=== PATIENT | female | born 1995 | race African-American/Black ===

== ENCOUNTER 2016-10-23 12:31 | Emergency (ER) | payer SELFPAY ==
[2016-10-23] MEDS ORDERED: IBUPROFEN 600 MG TABLET PO ONE (12:48)
--- NOTE | 2016-10-23 12:49 | ER Document Report ---
ED Medical Screen (RME) - General Stated Complaint: CHEST TIGHTNESS Mode of Arrival: Ambulatory Information source: Patient Notes: Patient complains of midsternal chest pain that has been constant. Patient reports nausea. Patient denies any cough or cold symptoms. Patient states that pain is tight close to the center of her back. Patient denies any family history of early heart disease. Patient denies any history of reflux. hx: None I have greeted and performed a rapid initial assessment of this patient. A comprehensive ED assessment and evaluation of the patient, analysis of test results and completion of the medical decision making process will be conducted by additional ED providers. TRAVEL OUTSIDE OF THE [place] IN LAST 30 DAYS: No - Related Data Allergies/Adverse Reactions: No Known Allergies Allergy (Verified 02/10/14 13:50) Past Medical History - Immunizations Hx Diphtheria, Pertussis, Tetanus Vaccination: Yes Physical Exam - Respiratory Chest status: Nontender - Cardiovascular Rhythm: Regular Heart sounds: S1 appreciated, S2 appreciated
[2016-10-23 12:51] VITALS: BP 117/68
--- NOTE | 2016-10-23 13:29 | EKG REPORT ---
SEVERITY:- NORMAL ECG - SINUS RHYTHM : Confirmed by: Fredi Joseph MD 23-Oct-2016 13:27:38
== END 2016-10-23 14:00 | disposition left against medical advice (07) ==
LOC: ER 12:31
DX: R07.9 Chest pain, unspecified (principal); R11.0 Nausea
CPT/HCPCS: 93005; 93010; 99281

== ENCOUNTER 2016-10-28 00:08 | Emergency (ER) | payer SELFPAY ==
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
[2016-10-28 01:27] LABS: ABSOLUTE BASOPHILS # (AUTO) 0.1 10^3/uL (0.0-0.2); ABSOLUTE LYMPHOCYTES (AUTO) 1.9 10^3/uL (0.5-4.7); ABSOLUTE MONOCYTES (AUTO) 0.6 10^3/uL (0.1-1.4); ABSOLUTE NEUT (AUTO) 5.2 10^3/uL (1.7-8.2); BASOPHILS % (AUTO) 0.8 % (0-2); EOSINOPHILS % (AUTO) 0.3 % (0-6); HEMATOCRIT 38.1 % (36.0-47.0); HEMOGLOBIN 12.9 g/dL (12.0-15.5); HGB HCT DIFFERENCE 0.6; LYMPHOCYTES % (AUTO) 24.3 % (13-45); MEAN CORPUSCULAR HEMOGLOBIN 28.6 pg (27.0-33.4); MEAN CORPUSCULAR HGB CONC 33.9 g/dL (32.0-36.0); MEAN CORPUSCULAR VOLUME 84 fl (80-97); MONOCYTES % (AUTO) 7.4 % (3-13); RED BLOOD COUNT 4.51 10^6/uL (3.72-5.28); RED CELL DISTRIBUTION WIDTH 13.3 % (11.5-14.0); SEGMENTED NEUTROPHILS % (AUTO) 67.2 % (42-78); WHITE BLOOD COUNT 7.7 10^3/uL (4.0-10.5)
[2016-10-28 01:46] LABS: APPEARANCE,URINE SLIGHTLY-CLOUDY; BILIRUBIN,URINE NEGATIVE (NEGATIVE); GLUCOSE, URINE NEGATIVE (NEGATIVE); KETONES,URINE TRACE mg/dL (NEGATIVE); LEUKOCYTE ESTERASE,URINE SMALL (NEGATIVE); NITRITE,URINE NEGATIVE (NEGATIVE); PROTEIN,URINE NEGATIVE (NEGATIVE); URINE SPECIFIC GRAVITY 1.024; UROBILINOGEN,URINE NEGATIVE mg/dL (<2.0)
[2016-10-28 01:50] LABS: ALANINE AMINOTRANSFERASE 26 U/L (9-52); ALBUMIN 4.7 g/dL (3.5-5.0); ALKALINE PHOSPHATASE 51 U/L (38-126); ANION GAP 14 (5-19); ASPARTATE AMINO TRANSFERASE 14 U/L (14-36); BILIRUBIN,TOTAL 0.7 mg/dL (0.2-1.3); BLOOD UREA NITROGEN 9 mg/dL (7-20); CALCIUM 9.5 mg/dL (8.4-10.2); CARBON DIOXIDE 24 mmol/L (22-30); CHLORIDE 105 mmol/L (98-107); GLUCOSE 127 mg/dL (75-110); POTASSIUM 3.3 mmol/L (3.6-5.0); SODIUM 142.7 mmol/L (137-145); TOTAL PROTEIN 7.5 g/dL (6.3-8.2)
[2016-10-28 01:55] LABS: ALCOHOL < 10 mg/dL (NONE DETECTED)
[2016-10-28 02:01] LABS: URINE BARBITURATES SCREEN NEGATIVE; URINE METHADONE SCREEN NEGATIVE; URINE OPIATES LOW UNCONFIRMED POSITIVE; URINE PHENCYCLIDINE SCREEN NEGATIVE
[2016-10-28] MEDS ORDERED: ONDANSETRON 4 MG TAB.RAPDIS ONE (08:00)
[2016-10-28] MEDS ORDERED: ONDANSETRON 4 MG TAB.RAPDIS PO ONE (08:17)
--- NOTE | 2016-10-28 09:37 | ER Document Report ---
Doctor's Note Notes: 21-year-old female presents after a supposed overdose. Medically cleared and awaiting psychiatric evaluation and recommendations at this time. No complaints at this time. PE: AAOx4. RRR. CTAB. Calm demeanor.
--- NOTE | 2016-10-28 11:14 | EKG REPORT ---
SEVERITY:- ABNORMAL ECG - SINUS RHYTHM RIGHT ATRIAL ABNORMALITY BORDERLINE T ABNORMALITIES, INFERIOR LEADS : Confirmed by: Fredi Joseph MD 28-Oct-2016 11:13:48
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
[2016-10-28] MEDS ORDERED: ACETAMINOPHEN 325 MG TABLET PO ONE (20:57)
[2016-10-28] MEDS ORDERED: BUSPIRONE HCL 10 MG TABLET PO SCH (22:00)
[2016-10-29] MEDS ORDERED: CITALOPRAM HYDROBROMIDE 20 MG TABLET PO SCH (10:00)
--- NOTE | 2016-10-29 16:27 | PSYCHOLOGICAL NOTE ---
Psych Note - Psych Note Psych Note: Conducted check in with patient who is a 21 year old female under IVC at [facility] ED for SI with alleged overdose. Patient today presents smiling with brighter affect. Patient denies suicidal ideations. Patient states she has not had any negative thoughts and reports she deeply misses her children. Patient answers that her thought processes has changed, and that she feels hope. Note, reviewed symptoms of mercy with patient to include elevated mood, impulsive urges, unusually happy, etc. each of which she denied. Patient's boyfriend is bedside and further denies she is presenting with these symptoms. He reports she is "more like herself." He denied concerns for her safety. Reviewed with patient options in regards to following up outpatient, which she agreed to do. Reviewed precautionary measures to include boyfriend securing all medications in the home and placing in a lock box for him to provide doses when due, as well as him keeping the gun safe sheets on his person at all times. Boyfriend and patient report they are in agreement with plan of care. Patient is A&Ox4. Mood is euthymic with smiling affect. Patient denies suicidal /homicidal ideaitons, intent, or plan. Patient denies A/V H; delusions not noted. Thought processes were organized. Conversational speech was WNL for patient. Intellectual abilities were estimated within average range. Attention and focus were fair. Insight, judgment, and impulse control were fair. Unspecified Depressive Disorder R/O PTSD Patient is psychiatrically cleared for discharge and recommended for rescind IVC. Discussed at length with patient and boyfriend the quick escalation in her mood and affect. Encouraged patient to monitor her mood with the medications started last night and to quickly follow up with outpatient services , not to be discouraged if she does not continue to rise in mood/affect, and to return if any symptoms return or worsen. Discussed with patient coping skills to assist her, to include journaling, talking with friends/boyfriend, distracting herself, deep breathing when feeling anxious, and basic thought stopping. Patient was scheduled a follow up appointment with [facility] in [place] Saturday the . Patient and boyfriend provided with community resources. I consulted with Dr. Kapadia in regards for the care and management of this patient.
--- NOTE | 2016-10-29 16:28 | ER Document Report ---
ED Psych Disorder / Suicide - General Chief Complaint: Possible Overdose Stated Complaint: POSSIBLE OVERDOSE Mode of Arrival: Ambulatory TRAVEL OUTSIDE OF THE [place] IN LAST 30 DAYS: No - Related Data Allergies/Adverse Reactions: No Known Allergies Allergy (Verified 02/10/14 13:50) Past Medical History - General Information source: Patient - Social History Smoking Status: Never Smoker Chew tobacco use (# tins/day): No Frequency of alcohol use: Occasional Drug Abuse: None Family History: Reviewed & Not Pertinent, Malignancy Patient has suicidal ideation: No Patient has homicidal ideation: No Renal/ Medical History: Denies: Hx Peritoneal Dialysis Surgical Hx: Negative - Immunizations Hx Diphtheria, Pertussis, Tetanus Vaccination: Yes Physical Exam - Vital signs Vitals: Temp Pulse Resp BP Pulse Ox 98.1 F 115 H 16 129/78 H 99 10/28/16 00:15 10/28/16 00:15 10/28/16 00:15 10/28/16 00:15 10/28/16 00:15 Course - Re-evaluation Re-evalutation: 10/29/16 16:29 Patient medically cleared from her overdose and evaluated by psych. Their recommendations are "Patient is psychiatrically cleared for discharge and recommended for rescind IVC. Discussed at length with patient and boyfriend the quick escalation in her mood and affect. Encouraged patient to monitor her mood with the medications started last night and to quickly follow up with outpatient services, not to be discouraged if she does not continue to rise in mood/affect, and to return if any symptoms return or worsen. Discussed with patient coping skills to assist her, to include journaling, talking with friends /boyfriend, distracting herself, deep breathing when feeling anxious, and basic thought stopping. Patient was scheduled a follow up appointment with [facility] in [place] Saturday the . Patient and boyfriend provided with community resources. I consulted with Dr. Kapadia in regards for the care and management of this patient." Will DC patient home with 2 weeks of citalopram and BuSpar with follow-up at outpatient psychiatry. - Vital Signs Vital signs: Temp Pulse Resp BP Pulse Ox 97.9 F 62 16 100/55 L 98 10/29/16 06:50 10/29/16 06:50 10/29/16 06:50 10/29/16 06:50 02/13/17 06:50 - Laboratory Result Diagrams: 02/12/17 01:00 10/28/16 01:00 Laboratory results interpreted by me: 10/28/16 10/28/16 01:00 01:20 Potassium 3.3 L Glucose 127 H Urine Ketones TRACE H Urine Blood SMALL H Ur Leukocyte Esterase SMALL H Urine Ascorbic Acid 40 H Salicylates < 1.0 L Discharge - Discharge Clinical Impression: Suicide attempt Overdose Qualifiers: Encounter type: initial encounter Injury intent: intentional self-harm Qualified Code(s): T50.902A - Poisoning by unspecified drugs, medicaments and biological substances, intentional self-harm, initial encounter Condition: Stable Disposition: HOME, SELF-CARE Additional Instructions: You must go to [facility] as scheduled on Saturday. Your boyfriend will be handling your medications. DEPRESSION: Your evaluation reveals that you have mental depression. While symptoms may be vague, they often include disturbance of sleep, fatigue, loss of appetite , and general loss of interest in life. While depression may be a side effect of drugs, or a reaction to a major change in your life, many cases have no known cause. If depression is acute, and related to a major loss in your life, you can expect it to clear completely with time. If you have been depressed a long time , are prone to repeated bouts of depression or low mood, or have been thinking of suicide, get help. Depression can be treated with anti-depressant medication and counselling. Long-term depression will often take a few weeks to clear, even with appropriate medication. Follow-up care is important. SUICIDAL IDEATION: Suicidal ideation is a common medical term for thoughts about suicide, which may be as detailed as a formulated plan, without the suicidal act itself. Although most people who undergo suicidal ideation do not commit suicide, some go on to make suicide attempts. The range of suicidal ideation varies greatly from fleeting to detailed planning, role playing, and unsuccessful attempts. While thoughts about suicide are common, most people do not carry out serious actions to commit suicide. Based upon your evaluation and discussion with you, we do not believe you are currently at risk to act upon your thoughts of suicide. You have agreed to return to the Emergency Department, at any time , if you feel inclined to act upon your suicidal thoughts. FOLLOW-UP CARE: If you have been referred to a physician for follow-up care, call the physician s office for an appointment as you were instructed or within the next two days. If you experience worsening or a significant change in your symptoms, notify the physician immediately or return to the Emergency Department at any time for re-evaluation. Prescriptions: Buspirone HCl [Buspar 10 mg Tablet] 10 mg PO QHS #14 tab Citalopram Hydrobromide [Citalopram HBr] 20 mg PO DAILY #14 tablet
[2016-10-29 16:57] VITALS: BP 114/59
== END 2016-10-29 16:58 | disposition home or self-care (01) ==
LOC: ER 00:08
DX: F32.9 Major depressive disorder, single episode, unspecified (principal); T40.2X2A Poisoning by other opioids, intentional self-harm, initial encounter
CPT/HCPCS: 93005; 99285; 36415; 80307 ×4; 84703; 85025; 80053; 81001; 93010; S0119

== ENCOUNTER 2016-11-08 13:52 | Emergency (ER) | payer OTHER ==
[2016-11-08 14:18] VITALS: BP 101/54
[2016-11-08] MEDS ORDERED: METOCLOPRAMIDE HCL 10 MG TABLET PO ONE (14:21)
[2016-11-08] MEDS ORDERED: DIPHENHYDRAMINE HCL 25 MG CAPSULE PO ONE (14:21)
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
== END 2016-11-08 15:45 | disposition left against medical advice (07) ==
LOC: ER 13:52
DX: R51 Headache (principal); V89.2XXA Person injured in unspecified motor-vehicle accident, traffic, initial encounter
CPT/HCPCS: 99281

== ENCOUNTER 2017-01-21 17:51 | Emergency (ER) | payer MEDICAID, OTHER ==
[2017-01-21] MEDS ORDERED: ONDANSETRON 4 MG TAB.RAPDIS PO ONE (18:16)
[2017-01-21] MEDS ORDERED: DICYCLOMINE HCL 20 MG TABLET PO ONE (18:16)
[2017-01-21 19:04] LABS: APPEARANCE,URINE SLIGHTLY-CLOUDY; BILIRUBIN,URINE NEGATIVE (NEGATIVE); GLUCOSE, URINE NEGATIVE (NEGATIVE); KETONES,URINE NEGATIVE (NEGATIVE); LEUKOCYTE ESTERASE,URINE TRACE (NEGATIVE); NITRITE,URINE NEGATIVE (NEGATIVE); PROTEIN,URINE NEGATIVE (NEGATIVE); URINE SPECIFIC GRAVITY 1.026; UROBILINOGEN,URINE NEGATIVE mg/dL (<2.0)
[2017-01-21 19:08] LABS: ABSOLUTE EOSINOPHILS # (AUTO) 0.1 10^3/uL (0.0-0.6); ABSOLUTE MONOCYTES (AUTO) 0.7 10^3/uL (0.1-1.4); ABSOLUTE NEUT (AUTO) 3.9 10^3/uL (1.7-8.2); BASOPHILS % (AUTO) 0.6 % (0-2); EOSINOPHILS % (AUTO) 1.2 % (0-6); HEMATOCRIT 37.8 % (36.0-47.0); HEMOGLOBIN 12.4 g/dL (12.0-15.5); HGB HCT DIFFERENCE -0.6; LYMPHOCYTES % (AUTO) 29.7 % (13-45); MEAN CORPUSCULAR HEMOGLOBIN 27.9 pg (27.0-33.4); MEAN CORPUSCULAR HGB CONC 32.8 g/dL (32.0-36.0); MEAN CORPUSCULAR VOLUME 85 fl (80-97); MONOCYTES % (AUTO) 9.9 % (3-13); RED BLOOD COUNT 4.44 10^6/uL (3.72-5.28); RED CELL DISTRIBUTION WIDTH 13.1 % (11.5-14.0); SEGMENTED NEUTROPHILS % (AUTO) 58.6 % (42-78); WHITE BLOOD COUNT 6.6 10^3/uL (4.0-10.5)
[2017-01-21 19:27] LABS: ALANINE AMINOTRANSFERASE 24 U/L (9-52); ALBUMIN 4.5 g/dL (3.5-5.0); ALKALINE PHOSPHATASE 46 U/L (38-126); ANION GAP 11 (5-19); ASPARTATE AMINO TRANSFERASE 15 U/L (14-36); BILIRUBIN,DIRECT 0.3 mg/dL (0.0-0.4); BILIRUBIN,TOTAL 0.8 mg/dL (0.2-1.3); BLOOD UREA NITROGEN 13 mg/dL (7-20); CALCIUM 9.7 mg/dL (8.4-10.2); CARBON DIOXIDE 26 mmol/L (22-30); CHLORIDE 104 mmol/L (98-107); CREATININE RESULT 0.69 mg/dL (0.52-1.25); GLUCOSE 82 mg/dL (75-110); LIPASE 38.5 U/L (23-300); POTASSIUM 4.3 mmol/L (3.6-5.0); SODIUM 140.9 mmol/L (137-145); TOTAL PROTEIN 7.6 g/dL (6.3-8.2)
[2017-01-21 19:57] VITALS: BP 104/58
--- NOTE | 2017-01-21 19:57 | ER Document Report ---
ED General - General Chief Complaint: Abdominal Pain Stated Complaint: BACK PAIN Time Seen by Provider: 01/21/17 18:16 TRAVEL OUTSIDE OF THE [place] IN LAST 30 DAYS: No - HPI Patient complains to provider of: abdominal pain Notes: Patient coming in left lower quadrant abdominal pain crampy also having crampy back pain. Patient denies any fevers chills nausea vomiting diarrhea denies any trauma denies any recent travel. Patient is unaware for status. Patient states last Jona cycle was approximately 2 weeks ago. - Related Data Allergies/Adverse Reactions: No Known Allergies Allergy (Verified 01/21/17 17:54) Past Medical History - Social History Smoking Status: Former Smoker Chew tobacco use (# tins/day): No Frequency of alcohol use: Rare Drug Abuse: None Family History: Reviewed & Not Pertinent, Malignancy Patient has suicidal ideation: No Patient has homicidal ideation: No Renal/ Medical History: Denies: Hx Peritoneal Dialysis Psychiatric Medical History: Reports: Hx Depression - & anxiety - Immunizations Hx Diphtheria, Pertussis, Tetanus Vaccination: Yes Review of Systems - Review of Systems Constitutional: No symptoms reported EENT: No symptoms reported Cardiovascular: No symptoms reported Respiratory: No symptoms reported Gastrointestinal: Abdominal pain Genitourinary: No symptoms reported Female Genitourinary: No symptoms reported Musculoskeletal: No symptoms reported Skin: No symptoms reported Hematologic/Lymphatic: No symptoms reported Neurological/Psychological: No symptoms reported Physical Exam - Vital signs Vitals: Temp Pulse Resp BP Pulse Ox 98.6 F 77 16 105/56 L 99 01/21/17 17:56 01/21/17 17:56 01/21/17 17:56 01/21/17 17:56 01/21/17 17:56 Interpretation: Normal - General General appearance: Appears well, Alert - HEENT Head: Normocephalic, Atraumatic Eyes: Normal Pupils: PERRL - Respiratory Respiratory status: No respiratory distress Chest status: Nontender Breath sounds: Normal Chest palpation: Normal - Cardiovascular Rhythm: Regular Heart sounds: Normal auscultation Murmur: No - Abdominal Inspection: Normal Distension: No distension Bowel sounds: Normal Tenderness: Nontender Organomegaly: No organomegaly - Back Back: Normal, Nontender - Extremities General upper extremity: Normal inspection, Nontender, Normal color, Normal ROM , Normal temperature General lower extremity: Normal inspection, Nontender, Normal color, Normal ROM , Normal temperature, Normal weight bearing. No: Kristine's sign - Neurological Neuro grossly intact: Yes Cognition: Normal Orientation: AAOx4 [place] Coma Scale Eye Opening: Spontaneous [place] Coma Scale Verbal: Oriented [place] Coma Scale Motor: Obeys Commands Birds[place] Coma Scale Total: 15 Speech: Normal Motor strength normal: LUE, RUE, LLE, RLE Sensory: Normal - Psychological Associated symptoms: Normal affect, Normal mood - Skin Skin Temperature: Warm Skin Moisture: Dry Skin Color: Normal Course - Re-evaluation Re-evalutation: 01/21/17 20:54 The patient presents with abdominal pain without signs of peritonitis or other life-threatening or serious etiology. The patient appears stable for discharge and has been instructed to return immediately if the symptoms worsen in any way , or in 8-12hr if not improved for re-evaluation. The patient has been instructed to return if the symptoms worsen or change in any way.. Patient better after Bentyl and Zofran - Vital Signs Vital signs: Temp Pulse Resp BP Pulse Ox 98.1 F 69 14 104/58 L 100 01/21/17 19:56 01/21/17 19:56 01/21/17 19:56 01/21/17 19:56 01/21/17 19:56 - Laboratory Result Diagrams: 01/21/17 18:35 01/21/17 18:35 Laboratory results interpreted by me: 01/21/17 18:40 Ur Leukocyte Esterase TRACE H Discharge - Discharge Clinical Impression: Abdominal pain Qualifiers: Abdominal location: unspecified location Qualified Code(s): R10.9 - Unspecified abdominal pain Condition: Good Disposition: HOME, SELF-CARE Instructions: Abdominal Pain ([facility]), Nausea or Vomiting, Nonspecific ([facility]) Additional Instructions: Follow-up with your primary care physician. Please take medication as prescribed. I do believe your symptoms could be related to a virus or possible ovarian cyst. There is not much to be due for ovarian cyst this is normal for your agrees to form cyst and rupture and cause crampy sharp shooting pain. Sometimes nausea can be experienced with this. Please continue to take Tylenol Motrin for pain control. Return to the ER symptoms worsen. Prescriptions: Ondansetron [Zofran Odt 4 mg Tablet] 4 mg PO Q4HP PRN #30 tab.rapdis PRN Reason: Dicyclomine HCl [Bentyl 20 mg Tablet] 20 mg PO QID #20 tablet Ibuprofen [Motrin 800 mg Tablet] 800 mg PO Q8H PRN #30 tab PRN Reason: Forms: Return to Work
[2017-01-21 20:28] LABS: CHLAM PCR NOT DETECTED (NOT DETECT)
== END 2017-01-21 19:57 | disposition home or self-care (01) ==
LOC: ER 17:51
DX: R10.32 Left lower quadrant pain (principal); M54.9 Dorsalgia, unspecified; Z87.891 Personal history of nicotine dependence
CPT/HCPCS: 99284; 36415; 84702; 83690; 85025; 80053; 81001; 87491; 87591; J3490; S0119

== ENCOUNTER 2017-02-24 09:43 | Emergency (ER) | payer MEDICAID ==
--- NOTE | 2017-02-24 10:04 | ER Document Report ---
ED Medical Screen (RME) - General Chief Complaint: Abdominal Pain Stated Complaint: ABDOMINAL PAIN Time Seen by Provider: 02/24/17 10:00 Notes: Patient thinks she has an abdominal hernia. She noted yesterday that there was a protrusion slightly above and to the left of the umbilicus. Now today, it is to the right of the umbilicus. She had a problem with a hernia in that region he was last time. Patient is now about 6 weeks again. No vomiting. No fevers. I palpated around the umbilicus and did, in fact, located a small hard round structure about 1 cm diameter which I pressed on firmly but gently and did feel some relief of the tenseness of the lesion and may have been able to reduce it, but the patient is not cooperative during this process. Home going to get an ultrasound to see if there is any small or bowel in the hernia TRAVEL OUTSIDE OF THE [place] IN LAST 30 DAYS: No - Related Data Allergies/Adverse Reactions: No Known Allergies Allergy (Verified 02/24/17 09:50) Past Medical History Renal/ Medical History: Denies: Hx Peritoneal Dialysis Psychiatric Medical History: Reports: Hx Depression - & anxiety - Immunizations Hx Diphtheria, Pertussis, Tetanus Vaccination: Yes Physical Exam - Vital signs Vitals: Temp Pulse Resp BP Pulse Ox 98.2 F 82 16 109/54 L 99 02/24/17 09:50 02/24/17 09:50 02/24/17 09:50 02/24/17 09:50 02/24/17 09:50 Course - Vital Signs Vital signs: Temp Pulse Resp BP Pulse Ox 98.2 F 82 16 109/54 L 99 02/24/17 09:50 02/24/17 09:50 02/24/17 09:50 02/24/17 09:50 02/24/17 09:50
--- NOTE | 2017-02-24 10:56 | RADIOLOGY REPORT (SQ) ---
EXAM DESCRIPTION: U/S ABDOMEN LIMITED W/O DOP COMPLETED DATE/TIME: 02/24/2017 10:45 am REASON FOR STUDY: Small periumbilical hernia, to the right of umbili COMPARISON: CT from 01/06/2016 TECHNIQUE: Dynamic and static grayscale images acquired of the localized site of clinical concern an d recorded on PACS. Additional selected color Doppler and spectral images recorded. SITE OF CONCERN: Abdominal wall LIMITATIONS: None. FINDINGS: SKIN AND SUBCUTANEOUS TISSUES: Small fat containing periumbilical hernia measuring 2.1 x 2 .4 cm. DEEP SOFT TISSUES/MUSCLES: No masses. No fluid collections. No edema. VASCULAR: No increased or decreased vascularity. No occlusions. OTHER: No other significant finding. IMPRESSION: 2.4 CM FAT CONTAINING PERIUMBILICAL HERNIA. NO ADDITIONAL ACUTE OR SIGNIFICANT FINDINGS . TECHNICAL DOCUMENTATION: JOB ID: [id number] [employer]- All Rights Reserved
--- NOTE | 2017-02-24 11:50 | ER Document Report ---
ED General - General Chief Complaint: Abdominal Pain Stated Complaint: ABDOMINAL PAIN Time Seen by Provider: 02/24/17 10:00 Mode of Arrival: Ambulatory Information source: Patient Notes: 21-year-old female with pain around the bellybutton. States that she was told she had a hernia in the past and they were going to fix it after her last 3 years ago. She states that it has been bothering her recently. Patient denies any fever, chills, nausea or vomiting TRAVEL OUTSIDE OF THE [place] IN LAST 30 DAYS: No - HPI Onset: Other - 3 years Onset/Duration: Gradual Quality of pain: No pain Severity: None Pain Level: Denies Associated symptoms: None Exacerbated by: Denies Relieved by: Denies Similar symptoms previously: Yes Recently seen / treated by doctor: Yes - Related Data Allergies/Adverse Reactions: No Known Allergies Allergy (Verified 02/24/17 09:50) Past Medical History - General Information source: Patient - Social History Smoking Status: Never Smoker Cigarette use (# per day): No Chew tobacco use (# tins/day): No Frequency of alcohol use: None Drug Abuse: None Lives with: Family Family History: Reviewed & Not Pertinent, Malignancy Patient has suicidal ideation: No Patient has homicidal ideation: No - Medical History Medical History: Negative Renal/ Medical History: Denies: Hx Peritoneal Dialysis Psychiatric Medical History: Reports: Hx Depression - & anxiety Surgical Hx: Negative - Immunizations Hx Diphtheria, Pertussis, Tetanus Vaccination: Yes Review of Systems - Review of Systems Constitutional: denies: Chills, Fever EENT: No symptoms reported Cardiovascular: No symptoms reported Respiratory: No symptoms reported Gastrointestinal: See HPI Genitourinary: No symptoms reported Female Genitourinary: No symptoms reported Musculoskeletal: No symptoms reported Skin: No symptoms reported Hematologic/Lymphatic: No symptoms reported Neurological/Psychological: No symptoms reported Physical Exam - Vital signs Vitals: Temp Pulse Resp BP Pulse Ox 98.2 F 82 16 109/54 L 99 02/24/17 09:50 02/24/17 09:50 02/24/17 09:50 02/24/17 09:50 02/24/17 09:50 Notes: Physical exam: GENERAL:-year-old female, alert and oriented 3, no acute distress HEAD: Atraumatic, normocephalic. EYES: Pupils equal round and reactive to light, extraocular movements intact, sclera anicteric, conjunctiva are normal. ENT: TMs normal, nares patent, oropharynx clear without exudates. Moist mucous membranes. NECK: Normal range of motion, supple without lymphadenopathy or JVD. LUNGS: Breath sounds clear to auscultation bilaterally and equal. No wheezes rales or rhonchi. HEART: Regular rate and rhythm without murmurs, rubs or gallops. ABDOMEN: Soft, normoactive bowel sounds. No tenderness to palpation. No guarding, no rebound. No masses appreciated. Does have a small periumbilical wall defect without any incarcerated bowel. EXTREMITIES: Normal range of motion, no pitting or edema. No clubbing or cyanosis. NEUROLOGICAL: Cranial nerves II through XII grossly intact. Normal speech, normal gait. PSYCH: Normal mood, normal affect. SKIN: Warm, Dry, normal turgor, no rashes or lesions noted. Bedside ultrasound: Intrauterine approximately 7 weeks gestation with a good heartbeat. The small subchorionic bleed Course - Vital Signs Vital signs: Temp Pulse Resp BP Pulse Ox 98.4 F 81 18 105/63 99 02/24/17 12:13 02/24/17 12:13 02/24/17 12:13 02/24/17 12:13 02/24/17 12:13 - Diagnostic Test Radiology reviewed: Image reviewed, Reports reviewed - ultraSound shows no encarceration Discharge - Discharge Clinical Impression: Umbilical hernia Qualifiers: Obstruction and gangrene presence: without obstruction or gangrene Qualified Code(s): K42.9 - Umbilical hernia without obstruction or gangrene Condition: Stable Disposition: HOME, SELF-CARE Instructions: Umbilical Hernia ([facility]) Additional Instructions: : The abdominal ultrasound showed a small umbilical hernia. There is no evidence of obstruction at this time Bedside ultrasound confirmed an intrauterine at 7 weeks gestation with good heartbeat See the instruction sheet on umbilical hernia Follow-up with your OB doctor: Bring a copy of today's ultrasound report with you when you go. Take stool softeners: Avoid constipation The emergency room for vomiting, abdominal pain, redness or bulge that does not go away concerns which are getting worse Avoid heavy lifting Forms: Return to Work
[2017-02-24 12:17] VITALS: BP 105/63
== END 2017-02-24 12:16 | disposition home or self-care (01) ==
LOC: ER 09:43
DX: K42.9 Umbilical hernia without obstruction or gangrene (principal); R10.9 Unspecified abdominal pain
CPT/HCPCS: 76705; 99284

== ENCOUNTER 2017-04-06 15:59 | Emergency (ER) | payer MEDICAID, OTHER ==
--- NOTE | 2017-04-06 16:22 | ER Document Report ---
ED Psych Disorder / Suicide <SHIRIN VERNON - Last Filed: 04/06/17 17:38> - General Mode of Arrival: Ambulatory Information source: Patient TRAVEL OUTSIDE OF THE [place] IN LAST 30 DAYS: No <MANAN PINA - Last Filed: 04/06/17 22:59> <MEGHANA WYMAN - Last Filed: 04/07/17 22:41> - General Stated Complaint: SUICIDAL IDEATION Notes: Patient is a 21 year old female presenting to the emergency department for suicidal ideation. Patient states she is feeling overwhelmed and having anxiety. Patient states she took herself off buspar and celexa. Patient is currently 12 weeks . Patient is . Patient states she stopped the medications because of her . Patient states she was texting the mobile crisis line trying to vent and they contacted the program management analyst's department. Patient starting cutting herself and was going to take a bath. Patient states she was going to take a bath. Patient states she was not going to drown herself. Patient cut herself with a broken mirror. Patient's last tetanus vaccination is more than 5 years ago. Patient has a boyfriend, her boyfriend's parents as a support system and her best friend just moved out of state. Patient has occasional cramping and has not been in to see OBGYN for her . Patient has no known allergies. (MANAN PINA) - HPI Notes: Patient states that she was overwhelmed and feeling her anxiety increased so text mobile crisis that her help. She continued to state that she ended letting mobile is no that she got a hold of her therapist. Patient states her therapist is with [facility] in her name in [place]. She states after she spoke to her she kind of felt the same but was working on staying home. She continued disclosed that she stopped her medication in December because she was and that she just stop did not taper off. She continued disclosed that after she stops she did tell her therapist. Patient states that she has depressive episodes and difficulty controlling her thoughts because they are "everywhere." Patient disclosed she has been inpatient one in September for an overdose. Patient disclosed that she did cut her leg however she has a history of cutting since she was 12 years old. She states she cut an attempt to change focus. She states that she then attempted to take a bath to try to relax; patient denies this was a suicide attempt. Patient states she has an appointment on April 23 for medication. Patient states she is a different person when she is on medication. patient is alert and orientated to person place time and circumstance. Mood is euthymic with flat affect. Patient denies suicidal and homicidal ideation. Patient states she is very anxious and is depressed denies suicide attempts. Patient uses cutting as maladaptive coping skills. Patient denies auditory and visual hallucination; patient is not demonstrating any behavior congruent with responding to internal stimuli. No delusions are noted. Thought process is currently organized and linear. Eye contact was well-maintained. Intellectual abilities appear to be average range. Attention and concentration were good. Insight, judgment, impulse control are fair. Major depressive disorder recurrent unspecified anxiety disorder Impression\\plan: Patient is considered psychiatrically clear for discharge. Patient does not meet IVC criteria per [place] GS 120 2C. Patient does have history of suicide attempt however after treatment she has been successful on medication and therapeutic intervention. Patient stopped her medication because she is . Patient showed strong insight and judgment when reaching out to mobile crisis and her therapist to get her through her crisis. Patient states she was attempting to cope and did fall back on using a maladaptive coping skill denies it was an attempt. Patient boyfriend, Pavel Carrizales, states he will be part of discharge plan to ensure patient does not have access to weapons or medications and follows up with her mental health appointment on April 23 for medication. Patient is recommended to keep this appointment with [facility] however it is also recommended patient follow-up with her PHYSICIAN INTERNIST to see if there is alternative method to assist with her hormones. Dr. Kapadia was consulted on the care and management of this patient; attending physician is in agreement with recommendations and disposition. (SHIRIN VERNON) - Related Data Allergies/Adverse Reactions: No Known Allergies Allergy (Verified 02/24/17 09:50) Past Medical History - General Information source: Patient - Social History Smoking Status: Never Smoker Cigarette use (# per day): No Chew tobacco use (# tins/day): No Smoking Education Provided: No Frequency of alcohol use: None Drug Abuse: None Family History: Malignancy Patient has suicidal ideation: Yes Patient has homicidal ideation: No Psychiatric Medical History: Reports: Hx Anxiety, Hx Depression Surgical Hx: Negative - Immunizations Hx Diphtheria, Pertussis, Tetanus Vaccination: Yes <MANAN PINA - Last Filed: 04/06/17 22:59> Review of Systems - Review of Systems Constitutional: No symptoms reported EENT: No symptoms reported Cardiovascular: No symptoms reported Respiratory: No symptoms reported Gastrointestinal: No symptoms reported Genitourinary: No symptoms reported Female Genitourinary: No symptoms reported Musculoskeletal: No symptoms reported Skin: No symptoms reported Hematologic/Lymphatic: No symptoms reported Neurological/Psychological: See HPI, Depression, Anxiety, Suicidal ideation -: Yes All other systems reviewed and negative <MANAN PINA - Last Filed: 04/06/17 22:59> Physical Exam <SHIRIN VERNON - Last Filed: 04/06/17 17:38> <MANAN PINA - Last Filed: 04/06/17 22:59> <MEGHANA WYMAN - Last Filed: 04/07/17 22:41> - Vital signs Vitals: Temp Pulse Resp BP Pulse Ox 99.0 F 106 H 16 116/65 99 04/06/17 16:03 04/06/17 16:03 04/06/17 16:03 04/06/17 16:03 04/06/17 16:03 - Notes Notes: GENERAL: Alert, interacts well. No acute distress. HEAD: Normocephalic, atraumatic. EYES: Appear normal. Pupils equal, round, and reactive to light. ENT: Moist mucus membranes, tongue midline. NECK: Full range of motion. Supple. Trachea midline. LUNGS: Clear to auscultation bilaterally, no wheezes, rales, or rhonchi. No respiratory distress. HEART: Regular rate and rhythm. No murmurs, gallops, or rubs. ABDOMEN: Soft, non-tender. Non-distended. Normal bowel sounds. EXTREMITIES: Moves all 4 extremities spontaneously. Normal strength. No edema. NEUROLOGICAL: Alert and oriented x3. Normal speech. No focal neurological deficits. GSC 15. PSYCH: Appears depressed. SKIN: Warm, dry, normal turgor. No rashes or lesions noted. (MANAN PINA) Course - Laboratory Result Diagrams: 04/06/17 16:19 04/06/17 16:19 <SHIRIN VERNON - Last Filed: 04/06/17 17:38> - Laboratory Result Diagrams: 04/06/17 16:19 04/06/17 16:19 <MANAN PINA - Last Filed: 04/06/17 22:59> - Laboratory Result Diagrams: 04/06/17 16:19 04/06/17 16:19 <MEGHANA WYMAN - Last Filed: 04/07/17 22:41> - Re-evaluation Re-evalutation: 04/06/17 18:08 Patient presents emerged from history of major depression feeling very sad she is approximately . She stopped taking her antidepressant medication early when she found out she was and has not started on anything else. She is not suicidal or homicidal she has not been diagnosed with anything other than anxiety and depression in the past. Well-appearing nontoxic no acute distress negative medical workup seen and evaluated by the psychiatric team who feels that she is safe to be discharged home as written discharge instructions which I have printed and given her follow-up information she is comfortable with this plan and is stable for follow-up. (MEGHANA WYMAN) - Vital Signs Vital signs: Temp Pulse Resp BP Pulse Ox 98.8 F 93 18 104/52 L 98 04/06/17 18:21 04/06/17 18:21 04/06/17 18:21 04/06/17 18:21 04/06/17 18:21 - Laboratory Laboratory results interpreted by me: 04/06/17 04/06/17 16:19 16:25 Ur Leukocyte Esterase SMALL H Salicylates < 1.0 L Acetaminophen < 10 L Discharge <SHIRIN VERNON - Last Filed: 04/06/17 17:38> <MANAN PINA - Last Filed: 04/06/17 22:59> <MEGHANA WYMAN - Last Filed: 04/07/17 22:41> - Discharge Clinical Impression: Anxiety Major depressive disorder Qualifiers: Major depression recurrence: recurrent Active/Remission status: currently active Major depression episode severity: unspecified Qualified Code(s): F33.9 - Major depressive disorder, recurrent, unspecified Condition: Stable Disposition: HOME, SELF-CARE Additional Instructions: DEPRESSION: Your evaluation reveals that you have mental depression. While symptoms may be vague, they often include disturbance of sleep, fatigue, loss of appetite , and general loss of interest in life. While depression may be a side effect of drugs, or a reaction to a major change in your life, many cases have no known cause. If depression is acute, and related to a major loss in your life, you can expect it to clear completely with time. If you have been depressed a long time , are prone to repeated bouts of depression or low mood, or have been thinking of suicide, get help. Depression can be treated with anti-depressant medication and counselling. Long-term depression will often take a few weeks to clear, even with appropriate medication. Follow-up care is important. SUICIDAL IDEATION: Suicidal ideation is a common medical term for thoughts about suicide, which may be as detailed as a formulated plan, without the suicidal act itself. Although most people who undergo suicidal ideation do not commit suicide, some go on to make suicide attempts. The range of suicidal ideation varies greatly from fleeting to detailed planning, role playing, and unsuccessful attempts. While thoughts about suicide are common, most people do not carry out serious actions to commit suicide. Based upon your evaluation and discussion with you, we do not believe you are currently at risk to act upon your thoughts of suicide. You have agreed to return to the Emergency Department, at any time , if you feel inclined to act upon your suicidal thoughts. FOLLOW-UP CARE: Please follow-up with your outpatient mental health provider, maria, on 04/08/2017. Please follow-up with your PHYSICIAN INTERNIST. if you experience worsening or a significant change in your symptoms, notify the physician immediately or return to the Emergency Department at any time for re-evaluation. Referrals: [facility] [Provider Group] - 04/08/17 Scribe Attestation: 04/06/17 18:08 I personally performed the services described in the documentation reviewed the documentation recorded by my scribe in my presence and it accurately and completely records my words and actions (MEGHANA WYMAN) Scribe Documentation - Scribe Written by Annemarie:: Annemarie Oconnell, 04/06/17 22:59 acting as scribe for :: Kit <MANAN PINA - Last Filed: 04/06/17 22:59>
[2017-04-06 16:54] LABS: APPEARANCE,URINE SLIGHTLY-CLOUDY; BILIRUBIN,URINE NEGATIVE (NEGATIVE); GLUCOSE, URINE NEGATIVE (NEGATIVE); KETONES,URINE NEGATIVE (NEGATIVE); LEUKOCYTE ESTERASE,URINE SMALL (NEGATIVE); NITRITE,URINE NEGATIVE (NEGATIVE); PROTEIN,URINE NEGATIVE (NEGATIVE); URINE SPECIFIC GRAVITY 1.017; UROBILINOGEN,URINE NEGATIVE mg/dL (<2.0)
[2017-04-06 16:58] LABS: ABSOLUTE BASOPHILS # (AUTO) 0.1 10^3/uL (0.0-0.2); ABSOLUTE EOSINOPHILS # (AUTO) 0.1 10^3/uL (0.0-0.6); ABSOLUTE LYMPHOCYTES (AUTO) 1.5 10^3/uL (0.5-4.7); BASOPHILS % (AUTO) 0.6 % (0-2); EOSINOPHILS % (AUTO) 0.6 % (0-6); HEMATOCRIT 39.5 % (36.0-47.0); HEMOGLOBIN 13.2 g/dL (12.0-15.5); HGB HCT DIFFERENCE 0.1; MEAN CORPUSCULAR HEMOGLOBIN 28.7 pg (27.0-33.4); MEAN CORPUSCULAR HGB CONC 33.6 g/dL (32.0-36.0); MEAN CORPUSCULAR VOLUME 86 fl (80-97); MONOCYTES % (AUTO) 9.1 % (3-13); RED BLOOD COUNT 4.62 10^6/uL (3.72-5.28); RED CELL DISTRIBUTION WIDTH 13.7 % (11.5-14.0); SEGMENTED NEUTROPHILS % (AUTO) 75.7 % (42-78); WHITE BLOOD COUNT 10.5 10^3/uL (4.0-10.5)
[2017-04-06 17:12] LABS: URINE BARBITURATES SCREEN NEGATIVE; URINE METHADONE SCREEN NEGATIVE; URINE OPIATES LOW NEGATIVE; URINE PHENCYCLIDINE SCREEN NEGATIVE
[2017-04-06 17:18] LABS: ALANINE AMINOTRANSFERASE 16 U/L (9-52); ALBUMIN 4.5 g/dL (3.5-5.0); ALKALINE PHOSPHATASE 52 U/L (38-126); ANION GAP 12 (5-19); ASPARTATE AMINO TRANSFERASE 14 U/L (14-36); BILIRUBIN,DIRECT 0.2 mg/dL (0.0-0.4); BILIRUBIN,TOTAL 0.6 mg/dL (0.2-1.3); BLOOD UREA NITROGEN 8 mg/dL (7-20); CALCIUM 9.7 mg/dL (8.4-10.2); CARBON DIOXIDE 23 mmol/L (22-30); CHLORIDE 106 mmol/L (98-107); CREATININE RESULT 0.59 mg/dL (0.52-1.25); GLUCOSE 81 mg/dL (75-110); POTASSIUM 3.7 mmol/L (3.6-5.0); SODIUM 141.2 mmol/L (137-145); TOTAL PROTEIN 7.7 g/dL (6.3-8.2)
[2017-04-06 17:19] LABS: ALCOHOL < 10 mg/dL (NONE DETECTED)
[2017-04-06 18:25] VITALS: BP 104/52
--- NOTE | 2017-04-08 13:59 | EKG REPORT ---
SEVERITY:- ABNORMAL ECG - SINUS RHYTHM PROBABLE LEFT ATRIAL ABNORMALITY PROBABLE LEFT VENTRICULAR HYPERTROPHY : Confirmed by: Meghan Amador MD 08-Apr-2017 13:59:09
== END 2017-04-06 18:24 | disposition home or self-care (01) ==
LOC: ER 15:59
DX: F41.9 Anxiety disorder, unspecified (principal); F33.9 Major depressive disorder, recurrent, unspecified; Z3A.12 12 weeks gestation of pregnancy
CPT/HCPCS: 36415; 80053; 80307; 81001; 85025; 93005; 93010; 99285

== ENCOUNTER 2017-05-12 09:33 | Emergency (ER) | payer MEDICAID, OTHER ==
[2017-05-12 09:40] VITALS: BP 108/61
--- NOTE | 2017-05-12 09:49 | ER Document Report ---
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 - ROS ROS below otherwise negative: Yes - URINARY Urinary: DENIES: Dysuria, Urgency, Frequency Notes: Visible hematuria - REPRODUCTIVE Reproductive: DENIES: : - DERM Skin Color: Normal Past Medical History - General Information source: Patient - Social History Smoking Status: Never Smoker Family History: Malignancy Patient has suicidal ideation: No Patient has homicidal ideation: No Renal/ Medical History: Denies: Hx Peritoneal Dialysis Psychiatric Medical History: Reports: Hx Anxiety, Hx Bipolar Disorder, Hx Depression - Immunizations Hx Diphtheria, Pertussis, Tetanus Vaccination: Yes Vertical Provider Document - CONSTITUTIONAL Agree With Documented VS: Yes Exam Limitations: No Limitations General Appearance: WD/WN, No Apparent Distress - INFECTION CONTROL TRAVEL OUTSIDE OF THE [place] IN LAST 30 DAYS: No - HEENT HEENT: Atraumatic, Normocephalic - RESPIRATORY Respiratory: Breath Sounds Normal O2 Sat by Pulse Oximetry: 100 - CARDIOVASCULAR Cardiovascular: Regular Rate, Regular Rhythm - GI/ABDOMEN Gastrointestinal: Abdomen Soft, Abdomen Non-Tender Notes: Gravid uterus - BACK Back: Normal Inspection. negative: CVA Tenderness-Right, CVA Tenderness-Left - MUSCULOSKELETAL/EXTREMETIES Musculoskeletal/Extremeties: MAEW, FROM, Non-Tender - NEURO Level of Consciousness: Alert, Appropriate - DERM Integumentary: Warm, Dry Course - Re-evaluation Re-evalutation: 05/12/17 09:49 Patient not ill-appearing. Will obtain heart tones as she reports 19 weeks gestation. Will check urine. 05/12/17 10:15 heart tones obtained and are normal. UA results discussed with patient. We will start her on antibiotics. Discussed need for [employer] MANAGER follow-up. - Vital Signs Vital signs: Temp Pulse Resp BP Pulse Ox 98.1 F 93 16 108/61 100 05/12/17 09:37 05/12/17 09:37 05/12/17 09:37 05/12/17 09:37 05/12/17 09:37 Discharge - Discharge Clinical Impression: UTI (urinary tract infection) Disposition: HOME, SELF-CARE Instructions: Urinary Tract Infection ([facility]) Additional Instructions: Follow-up with your [employer] AND [employer]AME [employer] MANAGER doctor in the morning. Return to the emergency department if worse or for any other problems. Prescriptions: Nitrofurantoin/Nitrofuran Mac [Macrobid 100 mg Capsule] 1 tab PO BID #14 capsule
[2017-05-12 10:10] LABS: APPEARANCE,URINE CLOUDY; BILIRUBIN,URINE NEGATIVE (NEGATIVE); GLUCOSE, URINE NEGATIVE (NEGATIVE); KETONES,URINE NEGATIVE (NEGATIVE); LEUKOCYTE ESTERASE,URINE LARGE (NEGATIVE); NITRITE,URINE NEGATIVE (NEGATIVE); PROTEIN,URINE 100 mg/dL (NEGATIVE); URINE SPECIFIC GRAVITY 1.013; UROBILINOGEN,URINE NEGATIVE mg/dL (<2.0)
[2017-05-12] MEDS ORDERED: NITROFURANTOIN MONOHYD/M-CRYST 100 MG CAPSULE PO ONE (10:14)
== END 2017-05-12 10:24 | disposition home or self-care (01) ==
LOC: ER 09:33
DX: N39.0 Urinary tract infection, site not specified (principal); R31.9 Hematuria, unspecified
CPT/HCPCS: 99283; 87086; 87088; 81001; 87186; J3490; J8499

== ENCOUNTER 2017-06-27 10:29 | Outpatient (CLI) | payer MEDICAID ==
[2017-06-27 11:32] LABS: APPEARANCE,URINE SLIGHTLY-CLOUDY; BILIRUBIN,URINE NEGATIVE (NEGATIVE); GLUCOSE, URINE NEGATIVE (NEGATIVE); KETONES,URINE NEGATIVE (NEGATIVE); LEUKOCYTE ESTERASE,URINE TRACE (NEGATIVE); NITRITE,URINE NEGATIVE (NEGATIVE); PROTEIN,URINE NEGATIVE (NEGATIVE); URINE SPECIFIC GRAVITY 1.008; UROBILINOGEN,URINE NEGATIVE mg/dL (<2.0)
[2017-06-27 11:38] LABS: URINE BARBITURATES SCREEN NEGATIVE; URINE METHADONE SCREEN NEGATIVE; URINE OPIATES LOW NEGATIVE; URINE PHENCYCLIDINE SCREEN NEGATIVE
== END 2017-06-27 11:45 | disposition home or self-care (01) ==
LOC: LC 10:29
PROVIDERS: ATTEND Student in an Organized Health Care Education/Training Program
PROC: 4A1HXCZ Monitoring of Products of Conception, Cardiac Rate, External Approach (ICD-10-PCS; principal; 2017-06-27)
DX: O47.02 False labor before 37 completed weeks of gestation, second trimester (principal); Z3A.25 25 weeks gestation of pregnancy
CPT/HCPCS: 80307; 81001; 87086

== ENCOUNTER 2017-09-16 17:46 | Outpatient (CLI) | payer MEDICAID ==
[2017-09-16 18:34] LABS: APPEARANCE,URINE CLOUDY; BILIRUBIN,URINE NEGATIVE (NEGATIVE); COLOR,URINE YELLOW; GLUCOSE, URINE NEGATIVE (NEGATIVE); KETONES,URINE NEGATIVE (NEGATIVE); LEUKOCYTE ESTERASE,URINE LARGE (NEGATIVE); NITRITE,URINE NEGATIVE (NEGATIVE); PROTEIN,URINE NEGATIVE (NEGATIVE)
[2017-09-16 19:01] LABS: URINE AMPHETAMINES SCREEN NEGATIVE; URINE BARBITURATES SCREEN NEGATIVE; URINE BENZODIAZEPINES SCREEN NEGATIVE; URINE COCAINE SCREEN NEGATIVE; URINE MARIJUANA (THC) SCREEN NEGATIVE; URINE METHADONE SCREEN NEGATIVE; URINE PHENCYCLIDINE SCREEN NEGATIVE
== END 2017-09-16 19:06 | disposition home or self-care (01) ==
LOC: LC 17:46
PROVIDERS: ATTEND Obstetrics & Gynecology Gynecology
PROC: 4A1HXCZ Monitoring of Products of Conception, Cardiac Rate, External Approach (ICD-10-PCS; principal; 2017-09-16)
DX: O36.8130 Decreased fetal movements, third trimester, not applicable or unspecified (principal); Z3A.37 37 weeks gestation of pregnancy
CPT/HCPCS: 59025; 80307; 81005

== ENCOUNTER 2017-09-18 23:20 | Observation (INO) | payer MEDICAID ==
[2017-09-19 00:29] LABS: APPEARANCE,URINE CLOUDY; BILIRUBIN,URINE NEGATIVE (NEGATIVE); GLUCOSE, URINE 50 mg/dL (NEGATIVE); KETONES,URINE NEGATIVE (NEGATIVE); LEUKOCYTE ESTERASE,URINE MODERATE (NEGATIVE); NITRITE,URINE NEGATIVE (NEGATIVE); PROTEIN,URINE NEGATIVE (NEGATIVE); URINE SPECIFIC GRAVITY 1.008; UROBILINOGEN,URINE NEGATIVE mg/dL (<2.0)
[2017-09-19 00:38] LABS: COLOR,URINE YELLOW
[2017-09-19 00:47] LABS: URINE AMPHETAMINES SCREEN NEGATIVE; URINE BARBITURATES SCREEN NEGATIVE; URINE BENZODIAZEPINES SCREEN NEGATIVE; URINE COCAINE SCREEN NEGATIVE; URINE MARIJUANA (THC) SCREEN NEGATIVE; URINE METHADONE SCREEN NEGATIVE; URINE PHENCYCLIDINE SCREEN NEGATIVE
[2017-09-19] MEDS ORDERED: RINGERS SOLUTION,LACTATED 1,000 ML IV PRN (02:51)
--- NOTE | 2017-09-19 10:13 | Non Stress Test Report ---
Non Stress Test Datetime Report Generated by CPN: 09/19/2017 10:13 DEMOGRAPHIC EGA NST: 36.2 EGA NST: 35.6 INDICATION Indication for Study: Ordered by Provider Indication for Study: Decreased Movement VITAL SIGNS Temperature - NST: 98.7 Pulse - NST: 74 RESP - NST: 18 NBPSYS NST: 98 NBPDIA NST: 55 MONITORING Monitor Explained: Monitor Explained; Patient Verbalized Understanding Monitor Explained: Monitor Explained; Test Explained; Patient Verbalized Understanding Time on Monitor: 09/19/2017 08:58 Time on Monitor: 09/16/2017 18:10 Time off Monitor: 09/19/2017 09:24 Time off Monitor: 09/16/2017 18:57 NST Duration: 26 NST Duration: 47 NST INTERVENTIONS NST Interventions: PO Hydration; IV Fluids; Reposition Patient NST Interventions: PO Hydration; IV Fluids; Reposition Patient NST Interventions: PO Hydration; Reposition Patient Physician Notified NST: Dr. Villalpando Physician Notified NST: DR MALLOY BABY A: [id number] BABY A Movement : Present Movement : Present Contraction Frequency : patient denies Contraction Frequency : 0 FHR Baseline : 140 FHR Baseline : 145 Accelerations : 10X10 Accelerations : 15X15 Decelerations : None Decelerations : None Variability : Moderate 6-25bpm Variability : Moderate 6-25bpm NST Review: Does Not Meet Criteria for Reactive NST NST Review: Does Not Meet Criteria for Reactive NST NST Review: Meets Criteria for Reactive NST NST Review and Verified By : Sonal Hoff [facility] NST Review and Verified By : Sonal Hoff [facility] NST Results: Non-Reactive NST Results: Reactive NST COMMENTS NST Comments: Dr. Villalpando reviewed strip, BPP results 04/23, patient may be discharged home NST REPORT Report Trigger: Send Report
--- NOTE | 2017-09-19 10:14 | RADIOLOGY REPORT (SQ) ---
EXAM DESCRIPTION: U/S PROFILE W/O STRESS COMPLETED DATE/TIME: 09/19/2017 10:03 am REASON FOR STUDY: non-reactive NST COMPARISON: None. TECHNIQUE: Limited [place]-scale realtime and static images of the fetus to measure specified parameter s. LIMITATIONS: None. FINDINGS: HEART RATE: 150 beats per minute. JOSE RAUL: 13.5 cm. BREATHING MOVEMENT: 2 points. MOVEMENT: 2 points. POSTURE AND TONE: 2 points. QUALITATIVE JOSE RAUL: 2 points. OTHER: No other significant finding. IMPRESSION: BIOPHYSICAL PROFILE: 04/23. Trimester of : Third - 28 weeks to delivery COMMENT: BREATHING MOVEMENTS: 2 POINTS: PRESENT 0 POINTS: ABSENT MOTION: 2 POINTS: PRESENT 0 POINTS: ABSENT TONE: 2 POINTS: PRESENT 0 POINTS: ABSENT AMNIOTIC FLUID VOLUME: 2 POINTS: LARGEST POCKET GREATER THAN 2 CM DEPTH. 0 POINTS: NO POCKET OF 2 CM. TECHNICAL DOCUMENTATION: JOB ID: [id number] [employer]- All Rights Reserved
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
--- NOTE | 2017-09-26 16:13 | Admission Physical ---
Datetime Report Generated by CPN: 09/26/2017 16:13 CURRENT ADMISSION Chief Complaint: Uterine Contractions Indication for Induction: Not Applicable Indication for Induction: , Intrauterine Admit Plan: Admit to Unit; Observation/Evaluation ALLERGIES Medication Allergies: No Medication Allergies: No Known Allergies (09/16/2017) Medication Allergies: No Known Allergies (05/12/2017) Medication Allergies: No Known Allergies (02/24/2017) Medication Allergies: No Known Allergies (02/10/2014) Latex: No Latex Allergies OBSTETRICAL HISTORY EDC: 10/15/2017 00:00 : 4 Para: 2 Term: 2 : 0 SAB: 1 IAB: 0 Ectopic: 0 Livin Cesareans: 0 VBACs: 0 Multiple Births: 0 Gestational Diabetes: No Rh Sensitization: No Incompetent Cervix: No JEAN: No Infertility: No ART Treatment: No Uterine Anomaly: No IUGR: No Hx Previous C/S: No Macrosomia: No Hx Loss/Stillborn: No PIH: No Hx : No Placenta Previa/Abruption: No Depression/PP Depression: Yes PTL/PROM: No Post Hemorrhage: No Current Procedures: Ultrasound; NST Obstetrical History Comments: G1-40 vaginal 8lbs 11oz boy-10/25/2010 G2-37 vaginal 8lbs 3oz [id number]-02/10/2014 G3-SAB 09/2016 G4-current SEE RECORDS Alcohol: No Marijuana : No Cocaine: No Other Illicit Drugs: No Cigarettes: Never Smoker. 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 G2 baby boy 2013 - pt reports Hemorrhage with last baby 2 blood transfusions G3 current INFECTIOUS HISTORY Gonorrhea: No Genital Herpes: Yes Chlamydia: No Tuberculosis: No Syphilis: No Hepatitis: No HIV/AIDS Exposure: No Rash or Viral Illness: No HPV: No PHYSICAL EXAM General: Normal HEENT: Normal Neurologic: Normal Thyroid: Deferred Heart: Normal Lungs: Deferred Breast: Normal Back: Normal Abdomen: Normal Genitourinary Exam: Normal Extremities: Normal DTRs: Normal Pelvic Type: Adequate Vital Signs: Reviewed VAGINAL EXAM Dilatation: 3 Effacement: 60 Station: -2 Contraction Comments: q 2-3 at admission, now q 16 MEMBRANES Membranes: Intact FETUS A Monitoring: External US FHR- Baseline: 150 Variability: Moderate 6-25bpm Accelerations: 15X15 Decelerations: None FHR Category: Category I Presentation: Vertex Admit Comment: 22yo (h/o x 2) presents for regular uterine ctx q 2-3 minutes and noted to have decel to 60s, several other variable decels and late decel. She was admitted for observation and monitoring. Pelvis proven to 8#11oz. H/o PPH and recieved 2 units of blood. GBS pending from office. 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 Not on prophy - will give prophy if discharged. FETUS B Monitoring: External US PLANS FOR LABOR AND DELIVERY Labor and Delivery: None Pain Management: Epidural Feeding Preference: Breast Benefit of Breast Feed Discussed: Yes Circumcision: N/A INFORMED CONSENT Informed Consent Obtained: Vaginal Delivery; Risks, Benefits and Alternatives Discussed Signature: with User ID: [email or web address]
== END 2017-09-19 10:46 | disposition home or self-care (01) ==
LOC: LC 23:20 → LR 09-19 02:57
PROVIDERS: ADMIT Student in an Organized Health Care Education/Training Program; ATTEND Student in an Organized Health Care Education/Training Program
PROC: 4A0HXCZ Measurement of Products of Conception, Cardiac Rate, External Approach (ICD-10-PCS; principal; 2017-09-19)
DX: O47.03 False labor before 37 completed weeks of gestation, third trimester (principal); O36.8130 Decreased fetal movements, third trimester, not applicable or unspecified; Z3A.36 36 weeks gestation of pregnancy; Z86.19 Personal history of other infectious and parasitic diseases
CPT/HCPCS: 76819; 80307; 81005; 87077; 87081

== ENCOUNTER 2017-09-24 21:48 | Outpatient (CLI) | payer MEDICAID ==
[2017-09-24 22:25] LABS: APPEARANCE,URINE SLIGHTLY-CLOUDY; BILIRUBIN,URINE NEGATIVE (NEGATIVE); COLOR,URINE STRAW; GLUCOSE, URINE NEGATIVE (NEGATIVE); KETONES,URINE NEGATIVE (NEGATIVE); LEUKOCYTE ESTERASE,URINE TRACE (NEGATIVE); NITRITE,URINE NEGATIVE (NEGATIVE); PROTEIN,URINE NEGATIVE (NEGATIVE); URINE SPECIFIC GRAVITY 1.006; UROBILINOGEN,URINE NEGATIVE mg/dL (<2.0)
[2017-09-24 22:55] LABS: URINE AMPHETAMINES SCREEN NEGATIVE; URINE BARBITURATES SCREEN NEGATIVE; URINE BENZODIAZEPINES SCREEN NEGATIVE; URINE COCAINE SCREEN NEGATIVE; URINE MARIJUANA (THC) SCREEN NEGATIVE; URINE METHADONE SCREEN NEGATIVE; URINE PHENCYCLIDINE SCREEN NEGATIVE
== END 2017-09-25 00:31 | disposition home or self-care (01) ==
LOC: LC 21:48
PROVIDERS: ATTEND Obstetrics & Gynecology
PROC: 4A1HXCZ Monitoring of Products of Conception, Cardiac Rate, External Approach (ICD-10-PCS; principal; 2017-09-24)
DX: O47.1 False labor at or after 37 completed weeks of gestation (principal); Z3A.37 37 weeks gestation of pregnancy
CPT/HCPCS: 59025; 80307; 81005

== ENCOUNTER 2017-09-30 14:08 | Outpatient (CLI) | payer MEDICAID ==
--- NOTE | 2017-09-30 14:19 | Non Stress Test Report ---
Non Stress Test Datetime Report Generated by CPN: 09/30/2017 14:18 DEMOGRAPHIC Test Number: 3 EGA NST: 37.0 INDICATION Indication for Study: Ordered by Provider URINE RESULTS Urine Protein, NST: Negative Urine Ketones - NST: Negative Urine Glucose - NST: Negative Urine Blood - NST: Negative MONITORING Monitor Explained: Monitor Explained; Test Explained; Patient Verbalized Understanding Time on Monitor: 09/24/2017 22:01 Time off Monitor: 09/24/2017 23:08 NST Duration: 67 NST INTERVENTIONS NST Interventions: PO Hydration; Reposition Patient Physician Notified NST: Dr. Villalpando BABY A: [id number] BABY A Movement : Present Contraction Frequency : 1-7 FHR Baseline : 130 Accelerations : 15X15 Decelerations : Variable Variability : Moderate 6-25bpm NST Review: Meets Criteria for Reactive NST NST Review and Verified By : Vu Merrill RN NST Results: Reactive NST REPORT Report Trigger: Send Report
[2017-09-30 14:39] LABS: APPEARANCE,URINE SLIGHTLY-CLOUDY; BILIRUBIN,URINE NEGATIVE (NEGATIVE); COLOR,URINE STRAW; GLUCOSE, URINE NEGATIVE (NEGATIVE); KETONES,URINE NEGATIVE (NEGATIVE); LEUKOCYTE ESTERASE,URINE SMALL (NEGATIVE); NITRITE,URINE NEGATIVE (NEGATIVE); PROTEIN,URINE NEGATIVE (NEGATIVE); URINE SPECIFIC GRAVITY 1.003; UROBILINOGEN,URINE NEGATIVE mg/dL (<2.0)
[2017-09-30 14:57] LABS: URINE AMPHETAMINES SCREEN NEGATIVE; URINE BARBITURATES SCREEN NEGATIVE; URINE BENZODIAZEPINES SCREEN NEGATIVE; URINE COCAINE SCREEN NEGATIVE; URINE MARIJUANA (THC) SCREEN NEGATIVE; URINE METHADONE SCREEN NEGATIVE; URINE PHENCYCLIDINE SCREEN NEGATIVE
--- NOTE | 2017-09-30 15:39 | Non Stress Test Report ---
Non Stress Test Datetime Report Generated by CPN: 09/30/2017 15:39 DEMOGRAPHIC EGA NST: 37.6 INDICATION Indication for Study: Ordered by Provider VITAL SIGNS Temperature - NST: 98.5 Pulse - NST: 103 RESP - NST: 14 NBPSYS NST: 98 NBPDIA NST: 55 MONITORING Monitor Explained: Test Explained; Patient Verbalized Understanding Time on Monitor: 09/30/2017 14:18 Time off Monitor: 09/30/2017 15:19 NST Duration: 61 NST INTERVENTIONS NST Interventions: PO Hydration Physician Notified NST: A Dunn CNM BABY A Movement : Present Contraction Frequency : 1.5-5 FHR Baseline : 130 Accelerations : 15X15 Decelerations : None Variability : Moderate 6-25bpm NST Review: Meets Criteria for Reactive NST NST Review and Verified By : Vickie Norton RN NST Results: Reactive NST REPORT Report Trigger: Send Report
== END 2017-09-30 15:27 | disposition home or self-care (01) ==
LOC: LC 14:08
PROVIDERS: ATTEND Obstetrics & Gynecology
PROC: 4A1HXCZ Monitoring of Products of Conception, Cardiac Rate, External Approach (ICD-10-PCS; principal; 2017-09-30)
DX: O47.1 False labor at or after 37 completed weeks of gestation (principal); Z3A.37 37 weeks gestation of pregnancy
CPT/HCPCS: 59025; 80307; 81005

== ENCOUNTER 2017-10-07 05:00 | Inpatient (IN) | payer MEDICAID ==
[2017-10-07] MEDS ORDERED: RINGERS SOLUTION,LACTATED 1,000 ML IV ONE (05:17)
[2017-10-07] MEDS ORDERED: RINGERS SOLUTION,LACTATED 1,000 ML IV PRN (05:17)
[2017-10-07] MEDS ORDERED: PENICILLIN G POTASSIUM 5,000,000 UNIT in DEXTROSE 5%-WATER 100 ML IV ONE (05:17)
[2017-10-07] MEDS ORDERED: PENICILLIN G-K 5 MILLION UNIT VIAL ONE ×2 (05:24→09:11)
[2017-10-07] MEDS ORDERED: OXYTOCIN/NORMAL SALINE 20 UNIT/1,000 ML RTUINJ ONE (05:25)
[2017-10-07] MEDS ORDERED: OXYTOCIN 10 UNIT/ML VIAL ONE (05:25)
[2017-10-07] MEDS ORDERED: LIDOCAINE 1% INJ-PF (10 MG/ML) 30 ML SDV ONE (05:29)
[2017-10-07] MEDS ORDERED: MISOPROSTOL 0.2 MG TABLET ONE (05:29)
[2017-10-07 05:46] LABS: ABSOLUTE BASOPHILS # (AUTO) 0.1 10^3/uL (0.0-0.2); ABSOLUTE EOSINOPHILS # (AUTO) 0.1 10^3/uL (0.0-0.6); ABSOLUTE LYMPHOCYTES (AUTO) 2.4 10^3/uL (0.5-4.7); ABSOLUTE MONOCYTES (AUTO) 1.1 10^3/uL (0.1-1.4); ABSOLUTE NEUT (AUTO) 6.4 10^3/uL (1.7-8.2); BASOPHILS % (AUTO) 0.6 % (0-2); EOSINOPHILS % (AUTO) 0.9 % (0-6); HEMATOCRIT 35.9 % (36.0-47.0); HEMOGLOBIN 11.8 g/dL (12.0-15.5); LYMPHOCYTES % (AUTO) 23.5 % (13-45); MEAN CORPUSCULAR HEMOGLOBIN 26.1 pg (27.0-33.4); MEAN CORPUSCULAR HGB CONC 32.9 g/dL (32.0-36.0); MEAN CORPUSCULAR VOLUME 79 fl (80-97); MONOCYTES % (AUTO) 11.2 % (3-13); PLATELET COUNT 167 10^3/uL (150-450); RED BLOOD COUNT 4.53 10^6/uL (3.72-5.28); RED CELL DISTRIBUTION WIDTH 15.8 % (11.5-14.0); SEGMENTED NEUTROPHILS % (AUTO) 63.8 % (42-78); TOTAL CELLS COUNTED % (AUTO) 100 %; WHITE BLOOD COUNT 10.1 10^3/uL (4.0-10.5)
[2017-10-07 06:14] LABS: AMNISURE (ROM) NEGATIVE (NEGATIVE)
[2017-10-07 06:17] LABS: URINE AMPHETAMINES SCREEN NEGATIVE; URINE BARBITURATES SCREEN NEGATIVE; URINE BENZODIAZEPINES SCREEN NEGATIVE; URINE COCAINE SCREEN NEGATIVE; URINE MARIJUANA (THC) SCREEN NEGATIVE; URINE METHADONE SCREEN NEGATIVE; URINE PHENCYCLIDINE SCREEN NEGATIVE
[2017-10-07] MEDS ORDERED: PHENYLEPHRINE HCL INJ/PF 10 MG/1 ML SDV ONE (06:43)
[2017-10-07] MEDS ORDERED: EPHEDRINE SULFATE INJ 50 MG/1 ML AMPULE ONE (06:43)
[2017-10-07] MEDS ORDERED: FENTANYL CITRATE INJ/PF 100 MCG/2 ML AMPUL ONE (06:43)
[2017-10-07] MEDS ORDERED: FENTANYL/BUPIVACAINE/NS/PF 200 MCG/100 ML RTUINJ EPI ONE (06:44)
[2017-10-07] MEDS ORDERED: BUPIVACAINE HCL 0.25 % INJ/PF (2.5 MG/1 ML) 30 ML VIAL ONE (06:44)
--- NOTE | 2017-10-07 07:58 | L&D Progress Notes ---
PROGRESS NOTES Datetime Report Generated by CPN: 10/07/2017 07:58 PROGRESS NOTE Impression: Normal Progression of Labor Procedures: Sterile Vag Exam Plan: Continue Present Management; Augmentation Informed Consent Obtained: Vaginal Delivery Informed Consent Obtained: Vaginal Delivery; Risks, Benefits and Alternatives Discussed Informed Consent Obtained: Vaginal Delivery; Risks, Benefits and Alternatives Discussed Vital Signs : Reviewed; Within Normal Limits Comment: resting on left side, ve = rim, vtx. -3, will sit up, start low dose Pitocin @ 2, irreg uc's, POC discussed with pt VAGINAL EXAM Dilatation: 8 Dilatation: 3 Effacement: 80 Effacement: 60 Station: 1 Station: -2 Contractions: q 2-3 Contractions: q 2-3 at admission, now q 16 MEMBRANES Membranes: Intact Membranes: Intact FETUS A FHR - Baseline: 150 Monitoring: External US Variability: Moderate 6-25bpm Accelerations: 15X15 Decelerations: None Presentation: Vertex Presentation: Vertex SIGNATURE SIGNATURE: [id number] SIGNATURE: [id number] SIGNATURE: [id number] SIGNATURE: [id number] Assignment: Uri Villalpando MD Signature: with User ID: [email or web address] : with User ID: [email or web address]
[2017-10-07] MEDS ORDERED: METHYLERGONOVINE MALEATE INJ/PF 0.2 MG/1 ML AMPULE ONE (09:11)
[2017-10-07] MEDS ORDERED: PENICILLIN G POTASSIUM 2,500,000 UNIT in DEXTROSE 5%-WATER 50 ML IV SCH (09:18)
[2017-10-07] MEDS ORDERED: PENICILLIN G-K 5 MILLION UNIT VIAL IV SCH (10:00)
[2017-10-07] MEDS ORDERED: MISOPROSTOL 0.2 MG TABLET PR PRN (10:17)
[2017-10-07] MEDS ORDERED: MEASLES,MUMPS&RUBELLA VACC/PF 0.5 ML VIAL SUBCUT PRN (10:17)
[2017-10-07] MEDS ORDERED: ACETAMINOPHEN 650 MG SUPP.RECT PR PRN (10:17)
[2017-10-07] MEDS ORDERED: BENZOCAINE/MENTHOL AEROSOL SPRAY 56 ML TOP PRN (10:17)
[2017-10-07] MEDS ORDERED: PSEUDOEPHEDRINE HCL 30 MG TABLET PO PRN (10:17)
[2017-10-07] MEDS ORDERED: PROMETHAZINE HCL 25 MG SUPP.RECT PR PRN (10:17)
[2017-10-07] MEDS ORDERED: METHYLERGONOVINE MALEATE INJ/PF 0.2 MG/1 ML AMPULE IM ONE (10:17)
[2017-10-07] MEDS ORDERED: DIBUCAINE 1% OINTMENT 28 GM TP PRN (10:17)
[2017-10-07] MEDS ORDERED: ACETAMINOPHEN WITH CODEINE #3 TABLET PO PRN ×2 (10:17)
[2017-10-07] MEDS ORDERED: MAGNESIUM HYDROXIDE SUSP 30 ML UDCUP PO PRN (10:17)
[2017-10-07] MEDS ORDERED: GLYCERIN/WITCH HAZEL LEAF 1 EACH MED..PAD TP PRN (10:17)
[2017-10-07] MEDS ORDERED: PROMETHAZINE HCL INJ 25 MG/1 ML VIAL IV PRN (10:17)
[2017-10-07] MEDS ORDERED: DIPH/PERTUSS(ACELL)/TETANUS VAC/PF 0.5 ML SYR (>=10YO) IM PRN (10:17)
[2017-10-07] MEDS ORDERED: OXYTOCIN/NORMAL SALINE 20 UNIT/1,000 ML RTUINJ IV PRN (10:17)
[2017-10-07] MEDS ORDERED: DIPHENHYDRAMINE HCL 25 MG CAPSULE PO PRN (10:17)
[2017-10-07] MEDS ORDERED: NA PHOS,M-B/NA PHOS,DI-BA (ADULT) 133 ML ENEMA PR PRN (10:17)
[2017-10-07] MEDS ORDERED: PROMETHAZINE HCL 25 MG TABLET PO PRN (10:17)
--- NOTE | 2017-10-07 11:30 | Delivery Summary ---
Del Sum A-C Datetime Report Generated by CPN: 10/07/2017 11:30 DELIVERY PERSONNEL DELIVERY PERSONNEL: [id number] Delivery Doctor:: Thalia Elliott CNM Labor and Delivery Nurse:: Nette Pierson RNcupola worker Nurse:: MILAGROS Becerril Director Patient Financial Services:: MILAGROS Guidry Briquetting Machine Operator/SEMICONDUCTOR DEVELOPMENT TECHNICIAN: Rachael Shelely, ST MATERNAL INFORMATION Delivery Anesthesia: Epidural Medications After Delivery: Pitocin Bolus-Please Comment; Methergine 0.2mg IM; Other-Please Comment Meds After Delivery Comment: Pitocin 20 units 1 L NS bolusing per order Cytotec 1000 mcg MO at 1006 Methergine 0.2 mg IM into R Thigh at 1007 Estimated Blood Loss (ml): 400 Maternal Complications: None Provider Comments: pt progressed to complete and descent, pushed several times and viable female from OA to MANDY over intact perineum, cord around leg, placed on mothers abd, cord clamped x 2min, FOB at BS, spont delivery of grossly nl intact placent, 3 VC, EBL 400cc, Cytotec 1000mcg via rectum, IV Pitocin, massage, and Methergine 0.2 mg IM Baby and mom remains in recovery in stable condition LABOR SUMMARY EDC: 10/15/2017 00:00 No. Babies in Womb: 1 Attempted: No Labor Anesthesia: Epidural LABOR INFORMATION Reason for Induction: Not Applicable Onset of Labor: 10/07/2017 05:30 Complete Dilatation: 10/07/2017 09:51 Oxytocin: Augmentation Group B Beta Strep: Positive Antibiotics # of Doses: 2 Antibiotics Time of Last Dose: 915 Name of Antibiotic Given: PCN Steroids Given: None Reason Steroids Not Administered: Not Applicable MEMBRANES Membranes Rupture Method: Spontaneous Rupture of Membranes: 10/06/2017 01:00 Length of Rupture (hr): 32.95 Amniotic Fluid Color: Clear Amniotic Fluid Amount: Small Amniotic Fluid Odor: Normal STAGES OF LABOR Stage 1 hr: 4 Stage 1 min: 21 Stage 2 hr: 0 Stage 2 min: 6 Stage 3 hr: 0 Stage 3 min: 6 Total Time in Labor hr: 4 Total Time in Labor min: 33 VAGINAL DELIVERY Episiotomy: None Laceration #1: None Laceration Extension #1: N/A Laceration Repair: Not Applicable Sponge Count Correct: N/A Sharps Count Correct: N/A CSECTION DELIVERY Primary Indication: N/A Secondary Indication: N/A CSection Incidence: N/A Labor: N/A Elective: N/A CSection Incision: N/A BABY A INFORMATION Infant Delivery Date/Time: 10/07/2017 09:57 Method of Delivery: Vaginal Born in Route : No : N/A Forceps: N/A Vacuum Extraction: N/A Shoulder Dystocia : No PRESENTATION/POSITION BABY A Presentation: Cephalic Cephalic Presentation: Vertex Vertex Position: Left Occipital Anterior Breech Presentation: N/A PLACENTA INFORMATION BABY A Placenta Delivery Time : 10/07/2017 10:03 Placenta Method of Delivery: Spontaneous Placenta Status: Delivered SCORES BABY A Heart Rate 1 min: >100 bpm Resp Effort 1 min: Good Cry Reflex Irritability 1 min: Cough or Sneeze or Pulls Away Muscle Tone 1 min: Active Motion Color 1 min: Body [place], Extremities Blue Resuscitation Effort 1 min: Tactile Stimulation SCORE 1 MIN: 9 Heart Rate 5 min: >100 bpm Resp Effort 5 min: Good Cry Reflex Irritability 5 min: Cough or Sneeze or Pulls Away Muscle Tone 5 min: Active Motion Color 5 min: Body [place], Extremities Blue Resuscitation Effort 5 min: N/A SCORE 5 MIN: 9 Resuscitation Effort 10 min: N/A INFORMATION BABY A Gestational Age at Delivery: 38.6 Gestational Status: Early Term- 37- 38.6 Weeks Outcome : Liveborn Condition : Stable Sex: Female IDENTIFICATION BABY A Verification Date/Time: 10/07/2017 10:16 ID Band Number: [id number] Mother's Name Verified: Yes RN Verifying Infant: C HALEY, RN Additional Verifying Personnel: PAUL HIANGIE, RN WEIGHT/LENGTH BABY A Birthweight (gm): 3215 Infant Weight (lb): 7 Infant Weight (oz): 1 Infant Length (in): 21.00 Infant Length (cm): 53.34 CORD INFORMATION BABY A No. Cord Vessels: 3 Nuchal Cord : N/A Nuchal Cord- Other: around ankle Cord Blood Taken: Yes-For Eval (Mom's Blood Type - or O+) Suction: Mouth; Nose ASSESSMENT BABY A Infant Complications: Multiple Late Decels; Multiple Variable Decels Physical Findings at Delivery: Within Normal Limits Respirations: Appears Normal Skin to Skin: Yes Skin to Skin Time (min): 60 Fulfillment Mail Clerk/ALS Called : No Care By: D Bellavance RNC Transferred To: Remains with Mother BABY B INFORMATION : N/A
--- NOTE | 2017-10-07 12:33 | Admission Physical ---
Datetime Report Generated by CPN: 10/07/2017 12:32 CURRENT ADMISSION Chief Complaint: Uterine Contractions Chief Complaint: Uterine Contractions Indication for Induction: Not Applicable Indication for Induction: Not Applicable Indication for Induction: Term, Intrauterine ; Active Labor Indication for Induction: , Intrauterine Admit Plan: Admit to Unit; Initiate Labor Protocol Admit Plan: Admit to Unit; Observation/Evaluation ALLERGIES Medication Allergies: No Medication Allergies: No Known Allergies (09/24/2017) Medication Allergies: No Known Allergies (09/16/2017) Medication Allergies: No Known Allergies (05/12/2017) Medication Allergies: No Known Allergies (02/24/2017) Medication Allergies: No Known Allergies (02/10/2014) Latex: No Latex Allergies OBSTETRICAL HISTORY EDC: 10/15/2017 00:00 : 4 Para: 2 Term: 2 : 0 SAB: 1 IAB: 0 Ectopic: 0 Livin Cesareans: 0 VBACs: 0 Multiple Births: 0 Gestational Diabetes: No Rh Sensitization: No Incompetent Cervix: No JEAN: No Infertility: No ART Treatment: No Uterine Anomaly: No IUGR: No Hx Previous C/S: No Macrosomia: No Hx Loss/Stillborn: No PIH: No Hx : No Placenta Previa/Abruption: No Depression/PP Depression: Yes PTL/PROM: No Post Hemorrhage: No Current Procedures: Ultrasound; NST Obstetrical History Comments: G1-40 vaginal 8lbs 11oz boy-10/25/2010 G2-37 vaginal 8lbs 3oz [id number]-02/10/2014 G3-SAB 09/2016 G4-current SEE RECORDS Alcohol: No Marijuana : No Cocaine: No Other Illicit Drugs: No Cigarettes: Never Smoker. 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 G2 baby boy 2014 - pt reports Hemorrhage with last baby 2 blood transfusions G3 current INFECTIOUS HISTORY Gonorrhea: No Genital Herpes: Yes Chlamydia: No Tuberculosis: No Syphilis: No Hepatitis: No HIV/AIDS Exposure: No Rash or Viral Illness: No HPV: No Infectious History Comments: HSV 06/16/2001--DO NOT DISCUSS AROUND OTHERS PHYSICAL EXAM General: Normal General: Normal HEENT: Normal HEENT: Normal Neurologic: Normal Neurologic: Normal Thyroid: Deferred Thyroid: Deferred Heart: Normal Heart: Normal Lungs: Normal Lungs: Deferred Breast: Deferred Breast: Normal Back: Normal Back: Normal Abdomen: Normal Abdomen: Normal Genitourinary Exam: Normal Genitourinary Exam: Normal Extremities: Normal Extremities: Normal DTRs: Normal DTRs: Normal Pelvic Type: Adequate Pelvic Type: Adequate Vital Signs: Reviewed Vital Signs: Reviewed VAGINAL EXAM Dilatation: 8 Dilatation: 3 Effacement: 80 Effacement: 60 Station: 1 Station: -2 Contraction Comments: q 2-3 Contraction Comments: q 2-3 at admission, now q 16 MEMBRANES Membranes: Intact Membranes: Intact FETUS A EGA: 38.6 EGA: 36.2 Monitoring: External US Monitoring: External US FHR- Baseline: 155 FHR- Baseline: 150 Variability: Moderate 6-25bpm Variability: Moderate 6-25bpm Accelerations: 15X15 Accelerations: 15X15 Decelerations: None Decelerations: None FHR Category: Category I FHR Category: Category I Presentation: Vertex Presentation: Vertex Admit Comment: 22yo at 38+6ega presents for regular uterine contractions. Cvx 7-8/80/+1. H/o HSV - No lesion/no prodrome - currently taking prophy with valacyclovir. Pelvis proven to 8#11oz. H/o PPH with VAVD - 2 units PRBCs transfusion. Admit to L_D for active labor. pt reports no recent SROM but on exam perineum appears c/w SROM and BOW not palpable. Will get Amnsiure. GBS positive - PCN for GSB prophy started. Anticipate . EFW approx 7-8# Admit Comment: 22yo (h/o x 2) presents for regular uterine ctx q 2-3 minutes and noted to have decel to 60s, several other variable decels and late decel. She was admitted for observation and monitoring. Pelvis proven to 8#11oz. H/o PPH and recieved 2 units of blood. GBS pending from office. 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 Not on prophy - will give prophy if discharged. FETUS B Monitoring: External US PLANS FOR LABOR AND DELIVERY Labor and Delivery: None Pain Management: Epidural Feeding Preference: Breast Benefit of Breast Feed Discussed: Yes Circumcision: N/A INFORMED CONSENT Informed Consent Obtained: Vaginal Delivery Informed Consent Obtained: Vaginal Delivery; Risks, Benefits and Alternatives Discussed Informed Consent Obtained: Vaginal Delivery; Risks, Benefits and Alternatives Discussed Signature: with User ID: [email or web address] Signature: with User ID: [email or web address] : with User ID: [email or web address]
[2017-10-07] MEDS: IBUPROFEN 800 MG TABLET PO SCH ×2 (13:42→22:18)
[2017-10-07] MEDS: FERROUS SULFATE 325 MG TABLET PO SCH (18:05)
[2017-10-07] MEDS: DOCUSATE SODIUM 100 MG CAPSULE PO SCH (18:06)
[2017-10-07] MEDS: FAMOTIDINE 20 MG TABLET PO SCH (22:18)
[2017-10-08] MEDS: IBUPROFEN 800 MG TABLET PO SCH ×3 (05:55→21:44)
[2017-10-08 07:50] LABS: HEMATOCRIT 34.7 % (36.0-47.0); HEMOGLOBIN 11.4 g/dL (12.0-15.5); MEAN CORPUSCULAR HEMOGLOBIN 26.1 pg (27.0-33.4); MEAN CORPUSCULAR HGB CONC 32.9 g/dL (32.0-36.0); MEAN CORPUSCULAR VOLUME 79 fl (80-97); PLATELET COUNT 173 10^3/uL (150-450); RED BLOOD COUNT 4.37 10^6/uL (3.72-5.28); RED CELL DISTRIBUTION WIDTH 15.6 % (11.5-14.0); WHITE BLOOD COUNT 9.5 10^3/uL (4.0-10.5)
--- NOTE | 2017-10-08 08:55 | PDOC PROGRESS REPORT ---
Subjective-OB Subjective: Post Delivery Day: 22 year old. Denies any needs at this time Physical Exam (OB) Vital Signs: Temp Pulse Resp BP Pulse Ox 98.1 F 65 17 109/58 L 100 10/08/17 07:36 10/08/17 07:36 10/08/17 07:36 10/08/17 07:36 10/08/17 07:36 Intake & Output 10/07/17 10/08/17 10/09/17 06:59 06:59 06:59 Intake Total 200 Balance 200 Weight 78.2 kg - PIH/Pre-Eclampsia Clonus: Negative - Lochia Lochia Amount: Scant < 10 ml Lochia Color: Rubra/Red - Abdomen Description: Tender, Soft, Round Hernia Present: No Bowel Sounds: Normoactive Flatus Presence: Present Fundal Description: Firm, Midline Fundal Height: u/u - u/2 - Respiratory Breath sounds: Clear Objective-Diagnostic Laboratory: 10/08/17 07:24 10/08/17 07:24 WBC 9.5 RBC 4.37 Hgb 11.4 L Hct 34.7 L MCV 79 L MCH 26.1 L MCHC 32.9 RDW 15.6 H Plt Count 173 Assessment and Plan(PN) - Time Spent with Patient Time with patient: Less than 15 minutes Medications reviewed and adjusted accordingly: Yes - Disposition Anticipated Discharge: Home Within: within 24 hours
[2017-10-08] MEDS: PRENATAL VITAMIN W DHA CAPSULE PO SCH (09:57)
[2017-10-08] MEDS: DOCUSATE SODIUM 100 MG CAPSULE PO SCH ×2 (09:57→17:47)
[2017-10-08] MEDS: FAMOTIDINE 20 MG TABLET PO SCH ×2 (09:57→21:44)
[2017-10-08] MEDS: SENNOSIDES/DOCUSATE 8.6-50 MG 1 EACH TABLET PO SCH (09:58)
[2017-10-08] MEDS: FERROUS SULFATE 325 MG TABLET PO SCH ×2 (09:58→17:47)
[2017-10-09] MEDS: IBUPROFEN 800 MG TABLET PO SCH (05:49)
[2017-10-09 08:39] VITALS: BP 108/55
[2017-10-09] MEDS: SENNOSIDES/DOCUSATE 8.6-50 MG 1 EACH TABLET PO SCH (09:32)
[2017-10-09] MEDS: FERROUS SULFATE 325 MG TABLET PO SCH (09:32)
[2017-10-09] MEDS: PRENATAL VITAMIN W DHA CAPSULE PO SCH (09:32)
[2017-10-09] MEDS: FAMOTIDINE 20 MG TABLET PO SCH (09:32)
[2017-10-09] MEDS: DOCUSATE SODIUM 100 MG CAPSULE PO SCH (09:32)
--- NOTE | 2017-10-09 11:11 | PDOC DISCHARGE SUMMARY ---
Final Diagnosis Discharge Date: 10/09/17 - Final Diagnosis (1) Normal vaginal delivery Is this a current diagnosis for this admission?: Yes (2) Carrier of group B Streptococcus Is this a current diagnosis for this admission?: Yes Discharge Data - Discharge Medication Prescriptions: Ibuprofen [Motrin 800 mg Tablet] 800 mg PO Q8HP PRN #30 tablet PRN Reason: Home Medications: Vit No.129/Iron/Folic [ One Daily Tablet] 1 each PO DAILY 09/19 Valacyclovir HCl [Valtrex 500 mg Tablet] 500 mg PO DAILY 09/24/17 Ibuprofen [Motrin 800 mg Tablet] 800 mg PO Q8HP PRN #30 tablet 10/09/17 Reason(s) for Admission: Onset of Labor Procedures: Ultrasound Intrapartum Procedure(s): Spontaneous Vaginal Delivery - Diagnosis Test Laboratory: Temp Pulse Resp BP Pulse Ox 98.5 F 69 16 108/55 L 98 10/09/17 08:29 10/09/17 08:29 10/09/17 08:29 10/09/17 07:42 10/09/17 08:29 10/07/17 10/07/17 10/08/17 05:09 05:32 07:24 RBC 4.53 4.37 Hgb 11.8 L 11.4 L Hct 35.9 L 34.7 L Urine Opiates Screen NEGATIVE - Discharge information/Instructions Discharge Activity: Activity As Tolerated, Balance Activity w/Rest, No Lifting Over 10 Pounds, No Lifting/Push/Pulling, Pelvic Rest, Slowly Increase Activity, No tub bath, Walk Frequently Discharge Diet: Regular Disposition: HOME, SELF-CARE Follow up with: [facility] in: 4, Weeks
== END 2017-10-09 12:53 | disposition home or self-care (01) | DRG 774 ==
LOC: LC 05:00 → LR 05:23 → 2S 12:31
PROVIDERS: ADMIT Student in an Organized Health Care Education/Training Program; ATTEND Student in an Organized Health Care Education/Training Program
PROC: 10E0XZZ Delivery of Products of Conception, External Approach (ICD-10-PCS; principal; 2017-10-07)
PROC: 4A1HXCZ Monitoring of Products of Conception, Cardiac Rate, External Approach (ICD-10-PCS; 2017-10-07)
DX: O99.824 Streptococcus B carrier state complicating childbirth (principal); O98.32 Other infections with a predominantly sexual mode of transmission complicating childbirth; O99.344 Other mental disorders complicating childbirth; F32.9 Major depressive disorder, single episode, unspecified; F41.9 Anxiety disorder, unspecified; A60.00 Herpesviral infection of urogenital system, unspecified; O69.82X0 Labor and delivery complicated by other cord entanglement, without compression, not applicable or unspecified; Z28.21 Immunization not carried out because of patient refusal; Z3A.38 38 weeks gestation of pregnancy; Z37.0 Single live birth
CPT/HCPCS: 36415; 80307; 84112; 85025; 85027; 86592; 86850; 86900; 86901; 94760; J2210; J2370; J2540; J2590; J3010; J3490

== ENCOUNTER 2018-02-16 09:55 | Emergency (ER) | payer MEDICAID ==
[2018-02-16 10:09] VITALS: BP 116/55
--- NOTE | 2018-02-16 10:14 | ER Document Report ---
HPI - HPI Patient complains to provider of: sore throat Pain Level: 2 Context: Patient is a 22-year-old female presents emergency room with a chief complaint of sore throat for the past 12 hours. Admits to pain with swallowing. Tolerating secretions she states it hurts worse on the right side. She denies any sinus congestion, sinus drainage, rhinitis, cough. Denies any fevers or chills. - EENT EENT: REPORTS: Sore Throat - REPRODUCTIVE Reproductive: DENIES: : Past Medical History - Social History Smoking Status: Never Smoker Chew tobacco use (# tins/day): No Frequency of alcohol use: None Drug Abuse: None Family History: Malignancy Patient has suicidal ideation: No Patient has homicidal ideation: No Renal/ Medical History: Denies: Hx Peritoneal Dialysis Psychiatric Medical History: Reports: Hx Anxiety, Hx Bipolar Disorder, Hx Depression - Immunizations Hx Diphtheria, Pertussis, Tetanus Vaccination: Yes Vertical Provider Document - CONSTITUTIONAL Agree With Documented VS: Yes Notes: PHYSICAL EXAM GENERAL: Alert, interacts well. HEENT: NCAT, pale conjunctiva, extraocular movements intact, pupils PERRL. external ear normal, no evidence of external auditory canal tenderness, blood/ drainage, cerumen impaction, TM intact without evidence of effusion, bulging, injection, MMM, Uvula midline. Airway patent. No evidence of tonsillar enlargement, peritonsillar abscess, retropharyngeal abscess. LUNGS: Clear to auscultation bilaterally, no wheezes, rales, or rhonchi. No respiratory distress. HEART: Regular rate and rhythm. No murmurs, gallops, or rubs. NEUROLOGICAL: Alert and oriented x4. Normal speech. PSYCH: Normal affect, normal mood. SKIN: Warm, dry, normal turgor. No rashes or lesions noted. - INFECTION CONTROL TRAVEL OUTSIDE OF THE [place] IN LAST 30 DAYS: No Course - Re-evaluation Re-evalutation: 02/16/18 10:47 Presentation is most consistent with a viral upper respiratory infection. Patient is overall well appearance, vitals within normal limits, well-hydrated. Patient denies any headache, neck pain, and has no evidence of meningismus on examination. Lungs are clear bilaterally. No evidence of respiratory distress. Based on clinical exam and history, I do not suspect an acute pneumonia, meningitis, strep pharyngitis, or an acute encephalitis. No laboratory or imaging testing is indicated at this time. Will discharge patient with return precautions and followup recommendations. They are in agreement this plan have verbalized understanding return precautions. - Vital Signs Vital signs: Temp Pulse Resp BP Pulse Ox 99.2 F 99 16 116/55 L 97 02/16/18 10:07 02/16/18 10:07 02/16/18 10:07 02/16/18 10:07 02/16/18 10:07 Discharge - Discharge Clinical Impression: URI (upper respiratory infection) Qualifiers: URI type: unspecified viral URI Qualified Code(s): J06.9 - Acute upper respiratory infection, unspecified Condition: Good Disposition: HOME, SELF-CARE Additional Instructions: Your symptoms are most likely due to a viral infection it should resolve over the next 7-14 days. You should take [id number] guanfacine per bottle instructions to help thin the mucus. For nasal congestion: I would recommend that you get [id number] oxymetazoline also known is afrin. Use only per bottle instructions and be sure to never use this for more than 3 days if you can develop severe rebound congestion. You may also use tylenol or ibuprofen as needed for aches and thorat discomfort. Please be sure to drink plenty of fluids and get rest. Return to the emergency department he began having difficulty breathing, chest pain, persistent vomiting, or any other symptoms that are concerning to you. Referrals: JOREG HERNANDEZ MD [ACTIVE STAFF] - Follow up as needed
== END 2018-02-16 11:03 | disposition home or self-care (01) ==
LOC: ER 09:55
DX: J06.9 Acute upper respiratory infection, unspecified (principal)
CPT/HCPCS: 87070; 87880; 99283

== ENCOUNTER 2018-02-17 18:50 | Emergency (ER) | payer MEDICAID ==
[2018-02-17 18:57] VITALS: BP 112/63
[2018-02-17] MEDS ORDERED: IBUPROFEN 800 MG TABLET PO ONE (19:07)
[2018-02-17] MEDS ORDERED: PENICILLIN V POTASSIUM 500 MG TABLET PO ONE (19:07)
--- NOTE | 2018-02-17 19:10 | ER Document Report ---
HPI - HPI Patient complains to provider of: Dental pain Onset: Other - 2 days Onset/Duration: Persistent Quality of pain: Achy Pain Level: 4 Context: Patient presents complaining of dental pain to right lower jaw. Patient reports that her gums are swollen at the site of tenderness. Patient denies any fever. Patient states she was here yesterday but thought that she was only having sore throat symptoms until her dental pain symptoms started to present themselves more clearly. Associated Symptoms: Other - Dental pain. denies: Fever Exacerbated by: Denies Relieved by: Denies Similar symptoms previously: No Recently seen / treated by doctor: No - ROS ROS below otherwise negative: Yes Systems Reviewed and Negative: Yes All other systems reviewed and negative - CONSTITUTIONAL Constitutional: DENIES: Fever, Chills - EENT Notes: Dental pain - GASTROINTESTINAL Gastrointestinal: DENIES: Nausea, Patient vomiting - REPRODUCTIVE LMP: 01/01 ( breast feeding) Reproductive: DENIES: : - DERM Skin Color: Normal Skin Problems: None Past Medical History - General Information source: Patient - Social History Smoking Status: Never Smoker Frequency of alcohol use: None Drug Abuse: None 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 IN LAST 30 DAYS: No - HEENT HEENT: Atraumatic, Normal ENT Exam, Normocephalic. negative: Pharyngeal Exudate , Pharyngeal Tenderness, Pharyngeal Erythema, Tympanic Membrane Red, Tympanic Membrane Bulging Mouth Diagram: 1 - Tender, gingival inflammation with swelling, no drainable abscess, no trismus, no submental or sublingual swelling - NECK Neck: Normal Inspection, Supple. negative: Lymphadenopathy-Left, Lymphadenopathy-Right - RESPIRATORY Respiratory: Breath Sounds Normal, No Respiratory Distress - CARDIOVASCULAR Cardiovascular: Regular Rate, Regular Rhythm, No Murmur - MUSCULOSKELETAL/EXTREMETIES Musculoskeletal/Extremeties: MAEW - NEURO Level of Consciousness: Awake, Alert, Appropriate Motor/Sensory: No Motor Deficit - DERM Integumentary: Warm, Dry, No Rash Course - Vital Signs Vital signs: Temp Pulse Resp BP Pulse Ox 98.8 F 100 18 112/63 96 02/17/18 18:55 02/17/18 18:55 02/17/18 18:55 02/17/18 18:55 02/17/18 18:55 Discharge - Discharge Clinical Impression: Toothache Condition: Stable Disposition: HOME, SELF-CARE Instructions: Oral Narcotic Medication ([facility]), Penicillin V K ([facility]), Toothache ( [facility]) Additional Instructions: Return immediately for any new or worsening symptoms Followup with your dental care provider, call tomorrow to make a followup appointment Prescriptions: Acetaminophen with Codeine [Acetaminophen-Cod #3 Tablet] 1 each PO Q6 PRN #10 tablet PRN Reason: Naproxen [Naprosyn 250 Nmg Tablet] 1 tab PO BID #14 tablet Penicillin V Potassium [Penicillin Vk 500 mg Tablet] 500 mg PO BID #20 tablet Referrals: ROBERT CASAS MD [ACTIVE STAFF] - Follow up as needed
== END 2018-02-17 19:18 | disposition home or self-care (01) ==
LOC: ER 18:50
DX: K08.89 Other specified disorders of teeth and supporting structures (principal); R68.84 Jaw pain
CPT/HCPCS: 99282; J3490 ×2

== ENCOUNTER 2019-04-22 12:07 | Emergency (ER) | payer MEDICAID ==
[2019-04-22 12:53] LABS: ABSOLUTE BASOPHILS # (AUTO) 0.1 10^3/uL (0.0-0.2); ABSOLUTE EOSINOPHILS # (AUTO) 0.2 10^3/uL (0.0-0.6); ABSOLUTE LYMPHOCYTES (AUTO) 2.2 10^3/uL (0.5-4.7); ABSOLUTE MONOCYTES (AUTO) 0.7 10^3/uL (0.1-1.4); ABSOLUTE NEUT (AUTO) 3.6 10^3/uL (1.7-8.2); BASOPHILS % (AUTO) 1.5 % (0-2); EOSINOPHILS % (AUTO) 2.9 % (0-6); HEMATOCRIT 40.5 % (36.0-47.0); HEMOGLOBIN 13.7 g/dL (12.0-15.5); LYMPHOCYTES % (AUTO) 32.1 % (13-45); MEAN CORPUSCULAR HEMOGLOBIN 28.7 pg (27.0-33.4); MEAN CORPUSCULAR HGB CONC 33.8 g/dL (32.0-36.0); MEAN CORPUSCULAR VOLUME 85 fl (80-97); MONOCYTES % (AUTO) 10.2 % (3-13); PLATELET COUNT 251 10^3/uL (150-450); RED BLOOD COUNT 4.76 10^6/uL (3.72-5.28); RED CELL DISTRIBUTION WIDTH 12.5 % (11.5-14.0); SEGMENTED NEUTROPHILS % (AUTO) 53.3 % (42-78); TOTAL CELLS COUNTED % (AUTO) 100 %; WHITE BLOOD COUNT 6.8 10^3/uL (4.0-10.5)
--- NOTE | 2019-04-22 13:07 | ER Document Report ---
ED General - General Chief Complaint: Dizziness Stated Complaint: DIZZINESS Time Seen by Provider: 04/22/19 12:54 Primary Care Provider: BELLE MACHADO MD [ACTIVE STAFF] - Follow up in 3-5 days Notes: [facility] when she began to feel dizzy and lightheaded about 10:15 AM. She has never had this happen before. She continues to have the dizziness and lightheaded feeling but also noticed that she felt like she was hot and her head hurt, although that has resolved now and she has no headache. She noted that her symptoms were made better if she sat down, but returned if she stood up. She never lost consciousness. She is never had this before. Patient drank a half a cup of coffee today, no more than usual. Does not drink any other caffeinated beverages. Never had any chest pain. Has not been sick recently. Denies any nausea or vomiting. Denies any U TI symptoms. EMS was called to the scene and they documented a heart rate between 98 and 150. On the patient's EMS strip, she has a sinus tachycardia 150. Patient has a control implant in her left arm. Patient has a history of bipolar disorder, depression, anxiety, PTSD, and ADHD. Current medications include Restoril which she takes at bedtime and took last night. She also has Effexor, but she has not taken it for 2 days and plans to stop because she does not like it. She also takes Adderall 20 mg XR twice a day and took it this morning. She takes Lamictal but does not know what strength and she took it this morning. TRAVEL OUTSIDE OF THE [place] IN LAST 30 DAYS: No - Related Data Allergies/Adverse Reactions: No Known Allergies Allergy (Verified 02/17/18 18:52) Past Medical History - Social History Smoking Status: Former Smoker Frequency of alcohol use: Occasional Drug Abuse: None Family History: Reviewed & Not Pertinent, Malignancy Patient has suicidal ideation: No Patient has homicidal ideation: No - Past Medical History Cardiac Medical History: Reports: None Psychiatric Medical History: Reports: Hx Anxiety, Hx Attention Deficit Hyperactivity Disorder, Hx Bipolar Disorder, Hx Depression Past Surgical History: Reports: Hx Herniorrhaphy - Umbilical as an - Immunizations Hx Diphtheria, Pertussis, Tetanus Vaccination: Yes Review of Systems - Review of Systems Notes: REVIEW OF SYSTEMS: CONSTITUTIONAL : Denies fever. EENT: Denies eye, ear, nose or mouth or throat pain or other symptoms. CARDIOVASCULAR: Denies chest pain. RESPIRATORY: Denies cough, chest congestion, or shortness of breath. GASTROINTESTINAL: Denies abdominal pain or nausea, vomiting, or diarrhea. GENITOURINARY: Denies difficulty or painful urinating, urinary frequency, blood in urine. LMP 2 weeks ago. Has a control implant. MUSCULOSKELETAL: Denies back or neck pain. Denies joint pain or swelling. SKIN: Denies rash or skin lesions. NEUROLOGICAL: See HPI. Denies LOC or altered mental status. Had a temporary headache but none at this time.. Denies sensory loss or motor deficits. ALL OTHER SYSTEMS REVIEWED AND NEGATIVE. Physical Exam - Vital signs Vitals: Temp Resp BP Pulse Ox 98.6 F 26 H 113/72 100 04/22/19 12:15 04/22/19 12:15 04/22/19 12:15 04/22/19 12:15 Interpretation: Tachycardic Notes: PHYSICAL EXAMINATION: GENERAL: Well-appearing, in no acute distress. Anxious HEAD: Atraumatic, normocephalic. EYES: Pupils equal round and reactive to light, extraocular movements intact. ENT: oropharynx clear without exudates. Moist mucous membranes. NECK: Normal range of motion, supple. LUNGS: Breath sounds clear and equal bilaterally. HEART: Regular rate and rhythm without murmurs. Heart rate about 110 at the bedside by me. ABDOMEN: Soft, nontender. No guarding or rebound. No masses. BACK: No tenderness throughout entire back. EXTREMITIES: Normal range of motion without pain. NEUROLOGICAL: Normal speech, normal gait. Normal sensory, motor, and reflex exams. Awake, alert, and oriented x3. Cranial nerves normal. PSYCH: Normal mood, normal affect. SKIN: Warm, dry, no rashes. Course - Re-evaluation Re-evalutation: 04/22/19 19:38 Patient continued to have some tachycardia with exertion such as standing up. She had received 1 L of saline earlier and I gave her another liter of saline and that seemed to improve the tachycardia episodes. When standing up, she would only go up into the low 100s. At rest, her heart rates down to 70. I spoke with Dr. Naqvi and I even faxed him copies of the patient's EKGs and rhythm strips from EMS. He recommended diltiazem 30 mg 3 times a day and he would follow her up in his office. The remainder of her work-up was essentially normal. CTA of the chest was negative for pulmonary embolus. 04/23/19 11:01 - Vital Signs Vital signs: Temp Pulse Resp BP Pulse Ox 98.6 F 19 129/78 H 100 04/22/19 12:15 04/22/19 17:43 04/22/19 17:43 04/22/19 17:43 - Laboratory Result Diagrams: 04/22/19 12:34 04/22/19 12:34 Laboratory results interpreted by me: 04/22/19 13:00 Urine Ketones TRACE H - Diagnostic Test Radiology reviewed: Image reviewed, Reports reviewed - CTA negative for pulmonary emboli. - EKG Interpretation by Hi EKG shows normal: Sinus rhythm Rate: Normal Rhythm: NSR Discharge - Discharge Clinical Impression: Sinus tachycardia Condition: Stable Disposition: HOME, SELF-CARE Additional Instructions: Sinus Tachycardia The palpitations (racing heart) you have felt are due to "sinus tachycardia." This is a rapid (but NORMAL) rhythm which can be due to fever, pain, anxiety, lack of sleep, over-exertion, or drugs. Cold medications, caffeine, and diet pills are particularly likely to cause tachycardia. The doctor has found no evidence of heart disease. Occasionally, me dication is required for uncomfortable palpitations. Usually, however, all that is required is rest, reassurance, and avoiding caffeine, alcohol, nicotine, and unnecessary medicines. Call the doctor if you develop any new or unusual symptoms, or if the rapid heartbeat does not resolve. Calcium Channel Blockers A medication of the calcium channel nuvia type has been prescribed for y ou. Examples of this type of medicine are Calan, Isoptin, Procardia, and Cardizem. These medicines have a variety of uses, including prevention of angina attacks, treatment of blood pressure, regulation of certain heart rhythm problems, and prevention of migraine headaches. Calcium channel blockers work by interfering with the flow of calcium in cell membranes. This results in dilation of blood vessels, and slowing of electrical conduction in the heart. A slight dizziness (due to a fall in blood pressure) may occur with the first dose, and sometimes even with later doses. This may make you prone to dizziness if you stand up suddenly. Call the doctor if lightheadedness is severe, or if you develop palpitations, shortness of breath, or any other new or alarming symptoms. NORMAL EXAM AND WORKUP: At this time, your examination and workup show no significant abnormality. No significant abnormal physical findings were noted. All laboratory, EKG, and imaging (x-ray, CT scans, ultrasound) studies that were ordered show no significant abnormality. Although your examination and all studies that were ordered showed no significant abnormal finding, there are no examinations and no studies that are 100% accurate. There is always the possibility that some abnormality could exist and not be detected with physical examination or within the limits and capabilities of laboratory and other studies. You should return or follow up as you were instructed on your visit today for further evaluation if your symptoms do not resolve. The medication prescribed can be taken up to 3 times a day. If you are not having any symptoms and feeling fine, you do not need to take it. In order to determine if you should take it, check your pulse and if it so 120 or more take this medication. I spoke with Dr. Machado, photo intern on staff here, and he will be happy to see you in his office in follow-up. I shared his EKGs and your strips from EMS with him so he is familiar with your case. He is the one who recommended the calcium channel nuvia that I am prescribing. I am providing Dr. Machado's contact information elsewhere in these discharge instructions. FOLLOW-UP CARE: If you have been referred to a physician for follow-up care, call the physicians office for an appointment as you were instructed or within the next two days. If you experience worsening or a significant change in your symptoms, notify the physician immediately or return to the Emergency Department at any time for re-evaluation. Prescriptions: Diltiazem HCl [Cardizem 30 mg Tablet] 1 tab PO TIDP PRN #20 tab PRN Reason: Referrals: BELLE MACHADO MD [ACTIVE STAFF] - Follow up in 3-5 days
[2019-04-22 13:13] LABS: ALBUMIN 4.8 g/dL (3.5-5.0); ALKALINE PHOSPHATASE 56 U/L (38-126); ANION GAP 12 (5-19); ASPARTATE AMINO TRANSFERASE 17 U/L (14-36); BILIRUBIN,DIRECT 0.1 mg/dL (0.0-0.4); BILIRUBIN,TOTAL 0.8 mg/dL (0.2-1.3); BLOOD UREA NITROGEN 10 mg/dL (7-20); CALCIUM 10.1 mg/dL (8.4-10.2); CARBON DIOXIDE 25 mmol/L (22-30); CHLORIDE 103 mmol/L (98-107); GLUCOSE 92 mg/dL (75-110); POTASSIUM 3.6 mmol/L (3.6-5.0); TOTAL PROTEIN 7.2 g/dL (6.3-8.2)
[2019-04-22 13:25] LABS: APPEARANCE,URINE SLIGHTLY-CLOUDY; BILIRUBIN,URINE NEGATIVE (NEGATIVE); COLOR,URINE YELLOW; GLUCOSE, URINE NEGATIVE (NEGATIVE); KETONES,URINE TRACE mg/dL (NEGATIVE); LEUKOCYTE ESTERASE,URINE NEGATIVE (NEGATIVE); NITRITE,URINE NEGATIVE (NEGATIVE); PROTEIN,URINE NEGATIVE (NEGATIVE); URINE SPECIFIC GRAVITY 1.008; UROBILINOGEN,URINE NEGATIVE mg/dL (<2.0)
--- NOTE | 2019-04-22 13:54 | RADIOLOGY REPORT (SQ) ---
EXAM DESCRIPTION: CTA CHEST COMPLETED DATE/TIME: 04/22/2019 1:39 pm REASON FOR STUDY: Disease, lightheaded, tachycardia up to 150 COMPARISON: None. TECHNIQUE: CT scan of the chest performed using helical scanning technique with dynamic intravenous contrast injection. Images reviewed with lung, soft tissue and bone windows. Reconstructed coronal and sagittal MPR images reviewed. Additional 3 dimensional post-processing performed to develop Maximal Intensity Projection images ([place] P). All images stored on PACS. All CT scanners at this facility use dose modulation, iterative reconstruction, and/or weight based d osing when appropriate to reduce radiation dose to as low as reasonably achievable (ALARA). [facility]: Dose Right [facility]: CareDose [facility]: Dose Right [facility]: Teradose 4D [facility]: ARtunes Radio CONTRAST TYPE AND DOSE: contrast/concentration: Isovue 350.00 mg/ml; Total Contrast Delivered: 53.0 ml; Total Saline Delivered: 60.0 ml Contrast bolus adequate for pulmonary arteries and aorta. RENAL FUNCTION: None required. The patient is less than 50 years old. RADIATION DOSE: CT Rad equipment meets quality standard of care and radiation dose reduction techniq ues were employed. CTDIvol: 9.9 - 14.6 mGy. DLP: 508 mGy-cm. . LIMITATIONS: None. FINDINGS: LUNGS AND PLEURA: No masses, infiltrates, or pneumothorax. No pleural effusions or pleura l calcifications. AORTA AND GREAT VESSELS: No aneurysm. No dissection. HEART: No pericardial effusion. No significant coronary artery calcifications. PULMONARY ARTERIES: No emboli visualized in the main pulmonary arteries or the segmental branches. HILAR AND MEDIASTINAL STRUCTURES: No identified masses or abnormal nodes. HARDWARE: None in the chest. UPPER ABDOMEN: No significant findings. Limited exam. THYROID AND OTHER SOFT TISSUES: No masses. No adenopathy. BONES: No acute or significant finding. 3D MIPS: Confirm above findings. OTHER: No other significant finding. IMPRESSION: NORMAL CTA OF THE CHEST. NO PULMONARY EMBOLI. COMMENT: Quality ID # [id number]: Final reports with documentation of one or more dose reduction techniques (e.g., Automated exposure control, adjustment of the mA and/or kV according to patient size, use of iterative reconstruction technique) TECHNICAL DOCUMENTATION: JOB ID: [id number] [employer]- All Rights Reserved Reading location - IP/workstation name: [email or web address]
[2019-04-22 14:18] LABS: FREE T4 (FREE THYROXINE) 0.94 ng/dL (0.78-2.19)
[2019-04-22 14:32] LABS: THYROID STIMULATING HORMONE 0.6 uIU/mL (0.47-4.68)
[2019-04-22] MEDS ORDERED: NORMAL SALINE 1000 ML 1,000 ML IV ONE (14:54)
--- NOTE | 2019-04-22 17:44 | EKG REPORT ---
SEVERITY:- ABNORMAL ECG - PACEMAKER SPIKES OR ARTIFACTS SINUS TACHYCARDIA RIGHT ATRIAL ABNORMALITY BORDERLINE T ABNORMALITIES, DIFFUSE LEADS : Confirmed by: Fredi Joseph MD 22-Apr-2019 17:43:54
[2019-04-22 17:46] VITALS: BP 129/78
== END 2019-04-22 17:51 | disposition home or self-care (01) ==
LOC: ER 12:07
DX: R00.0 Tachycardia, unspecified (principal); R42 Dizziness and giddiness
CPT/HCPCS: 93005; 99284; 96360; 36415; 84439; 80307; 83735; 84443; 85025; 80053; 81001; 71275; 93010; J7030

== ENCOUNTER 2019-04-30 08:05 | Emergency (ER) | payer BC, MEDICAID ==
[2019-04-30] MEDS ORDERED: IPRATROPIUM/ALBUTEROL 0.5-2.5 MG/3 ML AMPUL NEB ONE (10:31)
--- NOTE | 2019-04-30 10:43 | ER Document Report ---
ED General - General Chief Complaint: Breathing Difficulty Stated Complaint: DIFFICULTY BREATHING, DIZZINESS Time Seen by Provider: 04/30/19 10:29 TRAVEL OUTSIDE OF THE [place] IN LAST 30 DAYS: No - Related Data Allergies/Adverse Reactions: No Known Allergies Allergy (Verified 04/30/19 08:07) Past Medical History - General Information source: Patient - Social History Smoking Status: Former Smoker Family History: Reviewed & Not Pertinent, Malignancy Patient has suicidal ideation: No Patient has homicidal ideation: No Renal/ Medical History: Denies: Hx Peritoneal Dialysis Psychiatric Medical History: Reports: Hx Anxiety, Hx Attention Deficit Hyperactivity Disorder, Hx Bipolar Disorder, Hx Depression Past Surgical History: Reports: Hx Herniorrhaphy - Umbilical as an infant - Immunizations Hx Diphtheria, Pertussis, Tetanus Vaccination: Yes Review of Systems - Review of Systems Constitutional: No symptoms reported EENT: No symptoms reported Cardiovascular: See HPI Respiratory: No symptoms reported Gastrointestinal: No symptoms reported Genitourinary: No symptoms reported Female Genitourinary: No symptoms reported Musculoskeletal: No symptoms reported Skin: No symptoms reported Hematologic/Lymphatic: No symptoms reported Neurological/Psychological: No symptoms reported Physical Exam - Vital signs Vitals: Temp Pulse Resp BP Pulse Ox 98.3 F 117 H 20 118/73 100 04/30/19 08:11 04/30/19 08:11 04/30/19 08:11 04/30/19 08:11 04/30/19 08:11 - Notes Notes: PHYSICAL EXAMINATION: GENERAL: Well-appearing, well-nourished and in no acute distress. HEAD: Atraumatic, normocephalic. EYES: Pupils equal round and reactive to light, extraocular movements intact, conjunctiva are normal. ENT: Nares patent, oropharynx clear without exudates. Moist mucous membranes. NECK: Normal range of motion, supple without lymphadenopathy LUNGS: Breath sounds clear to auscultation bilaterally and equal. No wheezes rales or rhonchi. HEART: Sinus tachycardia without murmurs ABDOMEN: Soft, nontender, nondistended abdomen. No guarding, no rebound. No masses appreciated. Female : deferred Musculoskeletal: Normal range of motion, no pitting or edema. No cyanosis. NEUROLOGICAL: Cranial nerves grossly intact. Normal speech, normal gait. Normal sensory, motor exams PSYCH: Normal mood, normal affect. SKIN: Warm, Dry, normal turgor, no rashes or lesions noted. Course - Re-evaluation Re-evalutation: 04/30/19 14:21 23 yr old female presents today with complaints of SOB and dizziness for the last week, patient was seen in the ED approximately week ago for shortness of breath and dizziness. Patient did have a CTA which was negative for PE. Patient was discharged home on diltiazem 30 mg 3 times daily. Patient decided not to take this medication due to the fact that she recently was placed on Ambien, she did not know if this would interact. Patient does take Adderall 30 mg daily and does have a prescription for 30 mg Adderall IR from her psychiatrist for ADHD. Patient also started on Lexapro for her depression. Patient states she did not take the diltiazem since she was given a prescription while taking Adderall with complaints of tachycardia and dizziness. On clinical examination patient does has bilateral otitis effusion without infection, patient states she does have allergies. 30 mg of Cardizem given, I reevaluation approximately an hour later, heart rate stayed in the 90s. Patient states she does feel better. Long conversation with patient about not taking stimulants such as caffeine coffee On reevaluation patient's heart rate in the 90s after Cardizem 30mg po. The patient that she does need to take Cardizem 30 mg 3 times daily, stop taking A dderall. CBC negative for leukocytosis or anemia, CMP negative for hepatic or renal dysfunction, no electrolyte disturbances, patient states she did feel somewhat better after nebulizing treatment. Patient does have follow-up with steam pipe fitter on May [address] Clemons. After performing a Medical Screening Examination, I estimate there is LOW risk for RUPTURED ESOPHAGUS, PNEUMOTHORAX, PULMONARY EMBOLISM, ACUTE CORONARY SYNDROME, OR THORACIC AORTIC DISSECTION, thus I consider the discharge disposition reasonable. I have reevaluated this patient multiple times and no significant life threatening changes are noted. The patient and I have discussed the diagnosis and risks, and we agree with discharging home with close follow-up. We also discussed returning to the Emergency Department immediately if new or worsening symptoms occur. We have discussed the symptoms which are most concerning (e.g., bloody sputum, worsening pain or shortness of breath) that necessitate immediate return. - Vital Signs Vital signs: Temp Pulse Resp BP Pulse Ox 98.3 F 117 H 23 H 125/79 100 04/30/19 08:11 04/30/19 08:11 04/30/19 12:01 04/30/19 12:01 04/30/19 12:01 - Laboratory Result Diagrams: 04/30/19 11:10 04/30/19 11:10 Laboratory results interpreted by me: 04/30/19 11:10 Albumin 5.1 H Discharge - Discharge Clinical Impression: Palpitations, Noncompliance with treatment plan Condition: Stable Disposition: HOME, SELF-CARE Additional Instructions: Stop taking her Adderall as this is causing her heart rate to increase or speak to your prescribing provider. Did take the diltiazem 30 mg 3 times a day as prescribed to control your heart rate. Go to your follow-up cardiology appointment on May 04 as already scheduled. Avoid any stimulants such as Adderall, coffee, smoking, soda anything with caffeine in it. Work note given until you see your steam pipe fitter on Saturday. If any symptoms become worse return to the emergency room. Return immediately for any new or worsening symptoms. Follow up with primary care provider, call tomorrow to make followup appointment. Prescriptions: Diltiazem HCl [Cardizem 30 mg Tablet] 1 tab PO TID #30 tab Forms: Return to Work Referrals: AYLA CLEMONS MD [ACTIVE STAFF] - Follow up as needed KINZA PATEL MD [ACTIVE STAFF] - Follow up as needed
--- NOTE | 2019-04-30 11:25 | EKG REPORT ---
SEVERITY:- NORMAL ECG - SINUS RHYTHM : Confirmed by: Ena Reid 30-Apr-2019 11:24:40
[2019-04-30 11:26] LABS: ABSOLUTE BASOPHILS # (AUTO) 0.1 10^3/uL (0.0-0.2); ABSOLUTE EOSINOPHILS # (AUTO) 0.2 10^3/uL (0.0-0.6); ABSOLUTE LYMPHOCYTES (AUTO) 1.9 10^3/uL (0.5-4.7); ABSOLUTE MONOCYTES (AUTO) 0.8 10^3/uL (0.1-1.4); ABSOLUTE NEUT (AUTO) 6.7 10^3/uL (1.7-8.2); BASOPHILS % (AUTO) 1.4 % (0-2); EOSINOPHILS % (AUTO) 2.4 % (0-6); HEMATOCRIT 42.5 % (36.0-47.0); HEMOGLOBIN 14.5 g/dL (12.0-15.5); LYMPHOCYTES % (AUTO) 18.9 % (13-45); MEAN CORPUSCULAR HEMOGLOBIN 29.1 pg (27.0-33.4); MEAN CORPUSCULAR HGB CONC 34.2 g/dL (32.0-36.0); MEAN CORPUSCULAR VOLUME 85 fl (80-97); MONOCYTES % (AUTO) 8.5 % (3-13); PLATELET COUNT 270 10^3/uL (150-450); RED CELL DISTRIBUTION WIDTH 12.8 % (11.5-14.0); SEGMENTED NEUTROPHILS % (AUTO) 68.8 % (42-78); TOTAL CELLS COUNTED % (AUTO) 100 %; WHITE BLOOD COUNT 9.8 10^3/uL (4.0-10.5)
--- NOTE | 2019-04-30 11:32 | RADIOLOGY REPORT (SQ) ---
EXAM DESCRIPTION: CHEST 2 VIEWS COMPLETED DATE/TIME: 04/30/2019 11:09 am REASON FOR STUDY: sob COMPARISON: None. EXAM PARAMETERS: NUMBER OF VIEWS: two views TECHNIQUE: Digital Frontal and Lateral radiographic views of the chest acquired. RADIATION DOSE: NA LIMITATIONS: none FINDINGS: LUNGS AND PLEURA: No opacities, masses or pneumothorax. No pleural effusion. MEDIASTINUM AND HILAR STRUCTURES: No masses or contour abnormalities. HEART AND VASCULAR STRUCTURES: Heart normal size. No evidence for failure. BONES: No acute findings. HARDWARE: None in the chest. OTHER: No other significant finding. IMPRESSION: NO ACUTE RADIOGRAPHIC FINDING IN THE CHEST. TECHNICAL DOCUMENTATION: JOB ID: [id number] 1700 [employer] / [employer]- All Rights Reserved Reading location - IP/workstation name: [email or web address]
[2019-04-30 11:46] LABS: ALBUMIN 5.1 g/dL (3.5-5.0); ALKALINE PHOSPHATASE 68 U/L (38-126); ANION GAP 12 (5-19); ASPARTATE AMINO TRANSFERASE 16 U/L (14-36); BILIRUBIN,DIRECT 0.3 mg/dL (0.0-0.4); BLOOD UREA NITROGEN 10 mg/dL (7-20); CALCIUM 10.2 mg/dL (8.4-10.2); CARBON DIOXIDE 23 mmol/L (22-30); CHLORIDE 105 mmol/L (98-107); GLUCOSE 86 mg/dL (75-110); POTASSIUM 3.6 mmol/L (3.6-5.0); TOTAL PROTEIN 8.1 g/dL (6.3-8.2)
[2019-04-30] MEDS ORDERED: DILTIAZEM HCL 30 MG TABLET PO ONE (12:19)
[2019-04-30 13:45] LABS: URINE AMPHETAMINES SCREEN UNCONFIRMED POSITIVE; URINE BARBITURATES SCREEN NEGATIVE; URINE BENZODIAZEPINES SCREEN NEGATIVE; URINE COCAINE SCREEN NEGATIVE; URINE MARIJUANA (THC) SCREEN NEGATIVE; URINE METHADONE SCREEN NEGATIVE; URINE PHENCYCLIDINE SCREEN NEGATIVE
[2019-04-30 14:03] VITALS: BP 101/58
== END 2019-04-30 14:37 | disposition home or self-care (01) ==
LOC: ER 08:05
DX: R00.2 Palpitations (principal); T46.1X6A Underdosing of calcium-channel blockers, initial encounter; Z91.128 Patient's intentional underdosing of medication regimen for other reason; Z91.14 Patient's other noncompliance with medication regimen; R06.02 Shortness of breath; R00.0 Tachycardia, unspecified; R42 Dizziness and giddiness; F32.9 Major depressive disorder, single episode, unspecified; F90.9 Attention-deficit hyperactivity disorder, unspecified type; Z79.899 Other long term (current) drug therapy; Z87.891 Personal history of nicotine dependence
CPT/HCPCS: 93005; 94640; 99285; 36415; 85025; 80053; 80307; 71046; 93010; J7620

== ENCOUNTER 2019-06-06 17:54 | Emergency (ER) | payer BC, MEDICAID ==
[2019-06-06 18:03] VITALS: BP 127/71
--- NOTE | 2019-06-06 18:05 | ER Document Report ---
ED Medical Screen (RME) - General Chief Complaint: Abdominal Pain Stated Complaint: ABDOMINAL PAIN Time Seen by Provider: 06/06/19 18:01 Mode of Arrival: Ambulatory Information source: Patient Notes: This 23-year-old female presents to the emergency department with abdominal pain. Reports she had the abdominal pain Wedday and then today. She reports she vomited once today. She reports she has a bulge in her stomach that moves. Does have a history of hernia repair when she was an infant. Denies recent heavy lifting. No abdominal bulge noted at this time abdomen soft tender to pal richardson. I have greeted and performed a rapid initial assessment of this patient. A comprehensive ED assessment and evaluation of the patient, analysis of test results and completion of the medical decision making process will be conducted by additional ED providers. Dictation of this chart was performed using voice recognition software; therefore, there may be some unintended grammatical errors. TRAVEL OUTSIDE OF THE [place] IN LAST 30 DAYS: No - Related Data Allergies/Adverse Reactions: No Known Allergies Allergy (Verified 04/30/19 08:07) Past Medical History Renal/ Medical History: Denies: Hx Peritoneal Dialysis Psychiatric Medical History: Reports: Hx Anxiety, Hx Attention Deficit Hyperactivity Disorder, Hx Bipolar Disorder, Hx Depression Past Surgical History: Reports: Hx Herniorrhaphy - Umbilical as an infant - Immunizations Hx Diphtheria, Pertussis, Tetanus Vaccination: Yes History of Influenza Vaccine for 06/2017 - 11/2017 Season: Refused Physical Exam - Vital signs Vitals: Temp Pulse Resp BP Pulse Ox 98.6 F 96 16 127/71 H 98 06/06/19 18:02 06/06/19 18:02 06/06/19 18:02 06/06/19 18:02 06/06/19 18:02 Course - Vital Signs Vital signs: Temp Pulse Resp BP Pulse Ox 98.6 F 96 16 127/71 H 98 06/06/19 18:02 06/06/19 18:02 06/06/19 18:02 06/06/19 18:02 06/06/19 18:02
[2019-06-06 18:38] LABS: ABSOLUTE BASOPHILS # (AUTO) 0.1 10^3/uL (0.0-0.2); ABSOLUTE EOSINOPHILS # (AUTO) 0.1 10^3/uL (0.0-0.6); ABSOLUTE LYMPHOCYTES (AUTO) 1.9 10^3/uL (0.5-4.7); ABSOLUTE MONOCYTES (AUTO) 0.6 10^3/uL (0.1-1.4); ABSOLUTE NEUT (AUTO) 7.8 10^3/uL (1.7-8.2); BASOPHILS % (AUTO) 1.1 % (0-2); EOSINOPHILS % (AUTO) 1.4 % (0-6); HEMATOCRIT 40.5 % (36.0-47.0); HEMOGLOBIN 13.7 g/dL (12.0-15.5); LYMPHOCYTES % (AUTO) 18.2 % (13-45); MEAN CORPUSCULAR HGB CONC 33.8 g/dL (32.0-36.0); MEAN CORPUSCULAR VOLUME 86 fl (80-97); MONOCYTES % (AUTO) 5.3 % (3-13); PLATELET COUNT 258 10^3/uL (150-450); RED BLOOD COUNT 4.72 10^6/uL (3.72-5.28); RED CELL DISTRIBUTION WIDTH 13.1 % (11.5-14.0); TOTAL CELLS COUNTED % (AUTO) 100 %; WHITE BLOOD COUNT 10.5 10^3/uL (4.0-10.5)
[2019-06-06 18:43] LABS: APPEARANCE,URINE SLIGHTLY-CLOUDY; BILIRUBIN,URINE NEGATIVE (NEGATIVE); COLOR,URINE YELLOW; GLUCOSE, URINE NEGATIVE (NEGATIVE); KETONES,URINE NEGATIVE (NEGATIVE); LEUKOCYTE ESTERASE,URINE NEGATIVE (NEGATIVE); NITRITE,URINE NEGATIVE (NEGATIVE); PROTEIN,URINE NEGATIVE (NEGATIVE); URINE SPECIFIC GRAVITY 1.021; UROBILINOGEN,URINE NEGATIVE mg/dL (<2.0)
[2019-06-06 18:54] LABS: ALKALINE PHOSPHATASE 48 U/L (38-126); ANION GAP 10 (5-19); ASPARTATE AMINO TRANSFERASE 16 U/L (14-36); BILIRUBIN,DIRECT 0.1 mg/dL (0.0-0.4); BILIRUBIN,TOTAL 0.4 mg/dL (0.2-1.3); BLOOD UREA NITROGEN 14 mg/dL (7-20); CARBON DIOXIDE 27 mmol/L (22-30); CHLORIDE 103 mmol/L (98-107); GLUCOSE 120 mg/dL (75-110); TOTAL PROTEIN 7.6 g/dL (6.3-8.2)
--- NOTE | 2019-06-06 19:19 | RADIOLOGY REPORT (SQ) ---
EXAM DESCRIPTION: U/S ABDOMEN LTD W/DOPPLER COMPLETED DATE/TIME: 06/06/2019 6:52 pm REASON FOR STUDY: abd pain, ? hernia, swelling COMPARISON: 02/24/2017 TECHNIQUE: Dynamic and static grayscale images acquired of the localized site of clinical concern an d recorded on PACS. Additional selected color Doppler and spectral images recorded. SITE OF CONCERN: Periumbilical LIMITATIONS: None. FINDINGS: 5 cm x 4 x 1.4 cm area of mobile tissue in the periumbilical region with Valsalva consiste nt with hernia. OTHER: No other significant finding. IMPRESSION: 5 cm x 4 x 1.4 cm area of mobile tissue in the periumbilical region with Valsalva consis tent with hernia. TECHNICAL DOCUMENTATION: JOB ID: [id number] [place]-72 2010 [employer]- All Rights Reserved Reading location - IP/workstation name: [email or web address]
== END 2019-06-06 20:40 | disposition left against medical advice (07) ==
LOC: ER 17:54
DX: R10.9 Unspecified abdominal pain (principal); R10.819 Abdominal tenderness, unspecified site; R11.10 Vomiting, unspecified; Z53.20 Procedure and treatment not carried out because of patient's decision for unspecified reasons
CPT/HCPCS: 36415; 76705; 80053; 81001; 81025; 85025; 93976; 99284

== ENCOUNTER 2019-06-12 17:53 | Emergency (ER) | payer BC, MEDICAID ==
[2019-06-12] MEDS ORDERED: KETOROLAC TROMETHAMINE INJ/PF 30 MG/1 ML SDV IV ONE (19:08)
[2019-06-12] MEDS ORDERED: FAMOTIDINE INJ/PF 20 MG/2 ML SDV IV ONE (19:09)
[2019-06-12 19:51] LABS: ABSOLUTE BASOPHILS # (AUTO) 0.1 10^3/uL (0.0-0.2); ABSOLUTE EOSINOPHILS # (AUTO) 0.2 10^3/uL (0.0-0.6); ABSOLUTE LYMPHOCYTES (AUTO) 2.9 10^3/uL (0.5-4.7); ABSOLUTE MONOCYTES (AUTO) 0.5 10^3/uL (0.1-1.4); ABSOLUTE NEUT (AUTO) 3.5 10^3/uL (1.7-8.2); BASOPHILS % (AUTO) 1.2 % (0-2); EOSINOPHILS % (AUTO) 3.2 % (0-6); HEMATOCRIT 38.3 % (36.0-47.0); HEMOGLOBIN 13.2 g/dL (12.0-15.5); LYMPHOCYTES % (AUTO) 39.7 % (13-45); MEAN CORPUSCULAR HGB CONC 34.4 g/dL (32.0-36.0); MEAN CORPUSCULAR VOLUME 84 fl (80-97); MONOCYTES % (AUTO) 7.3 % (3-13); PLATELET COUNT 251 10^3/uL (150-450); RED BLOOD COUNT 4.55 10^6/uL (3.72-5.28); SEGMENTED NEUTROPHILS % (AUTO) 48.6 % (42-78); TOTAL CELLS COUNTED % (AUTO) 100 %; WHITE BLOOD COUNT 7.2 10^3/uL (4.0-10.5)
[2019-06-12 20:12] LABS: ALBUMIN 4.7 g/dL (3.5-5.0); ALKALINE PHOSPHATASE 47 U/L (38-126); ANION GAP 9 (5-19); ASPARTATE AMINO TRANSFERASE 18 U/L (14-36); BILIRUBIN,DIRECT 0.1 mg/dL (0.0-0.4); BILIRUBIN,TOTAL 0.5 mg/dL (0.2-1.3); BLOOD UREA NITROGEN 13 mg/dL (7-20); CALCIUM 9.8 mg/dL (8.4-10.2); CARBON DIOXIDE 27 mmol/L (22-30); CHLORIDE 104 mmol/L (98-107); GLUCOSE 84 mg/dL (75-110); POTASSIUM 3.6 mmol/L (3.6-5.0); TOTAL PROTEIN 7.2 g/dL (6.3-8.2)
--- NOTE | 2019-06-12 20:12 | ER Document Report ---
ED General - General Chief Complaint: Abdominal Pain Stated Complaint: ABDOMINAL PAIN Time Seen by Provider: 06/12/19 18:55 Notes: Patient is a 23-year-old female presents to the emergency department for generalized upper abdominal pain. States she has had this pain for approximately a week and half. Patient states she was seen at this facility on 06/06/2019. States the line was "too long" so she did not stay to be evaluated. Patient states she also presented to [facility] who told her to come to the emergency department. Upon my assessment she is eating [employer]. Denying any nausea, vomiting, diarrhea, dysuria, vaginal discharge. Patient states she does have a history of an umbilical hernia repair when she was younger. Is not complaining of periumbilical abdominal pain more so right upper and epigastric pain. Past medical history: ADHD, depression Medications: Adderall, Lexapro, Lamictal, Vistaril, Ambien Allergies: None Last menstrual cycle: Last week. TRAVEL OUTSIDE OF THE [place] IN LAST 30 DAYS: No - Related Data Allergies/Adverse Reactions: No Known Allergies Allergy (Verified 04/30/19 08:07) Past Medical History - General Information source: Patient - Social History Smoking Status: Never Smoker Chew tobacco use (# tins/day): No Frequency of alcohol use: Rare Drug Abuse: None Family History: Reviewed & Not Pertinent, Malignancy Patient has suicidal ideation: No Patient has homicidal ideation: No Renal/ Medical History: Denies: Hx Peritoneal Dialysis Psychiatric Medical History: Reports: Hx Anxiety, Hx Attention Deficit Hyperactivity Disorder, Hx Bipolar Disorder, Hx Depression Past Surgical History: Reports: Hx Herniorrhaphy - Umbilical as an - Immunizations Hx Diphtheria, Pertussis, Tetanus Vaccination: Yes Review of Systems - Review of Systems Constitutional: denies: Fever EENT: No symptoms reported Cardiovascular: No symptoms reported Respiratory: No symptoms reported Gastrointestinal: See HPI Genitourinary: No symptoms reported Female Genitourinary: See HPI Musculoskeletal: No symptoms reported Skin: No symptoms reported Hematologic/Lymphatic: No symptoms reported Neurological/Psychological: No symptoms reported Physical Exam - Vital signs Vitals: Temp Pulse Resp BP Pulse Ox 98.5 F 90 23 H 107/64 100 06/12/19 17:56 06/12/19 17:56 06/12/19 17:56 06/12/19 17:56 06/12/19 17:56 - Notes Notes: GENERAL: Alert, interacts well. No acute distress. HEAD: Normocephalic, atraumatic. EYES: Pupils equal, round, and reactive to light. Extraocular movements intact. ENT: Oral mucosa moist, tongue midline. NECK: Full range of motion. Supple. Trachea midline. LUNGS: Clear to auscultation bilaterally, no wheezes, rales, or rhonchi. No respiratory distress. HEART: Regular rate and rhythm. No murmur ABDOMEN: Soft, generalized right upper and epigastric abdominal pain. Otherwise abdominal exam benign. Non-distended. Bowel sounds present in all 4 quadrants. EXTREMITIES: Moves all 4 extremities spontaneously. No edema, normal radial and dorsalis pedis pulses bilaterally. No cyanosis. BACK: no cervical, thoracic, lumbar midline tenderness. No saddle anesthesia, normal distal neurovascular exam. NO CVA tenderness noted bilaterally NEUROLOGICAL: Alert and oriented x3. Normal speech. cranial nerves II through XII grossly intact. PSYCH: Normal affect, normal mood. SKIN: Warm, dry, normal turgor. No rashes or lesions noted. Course - Re-evaluation Re-evalutation: 06/12/19 22:41 Abdomen Ultrasound 06/12/19 19:08 IMPRESSION: No acute sonographic abnormality within the abdomen. Hypoechoic masslike area is located about the superficial soft tissues of the anterior abdominal wall just above the umbilicus, most likely corresponding to fat-containing ventral hernias. This could be confirmed with CT. copyright 2010 [employer]- All Rights Reserved Abdomen/Pelvis CT 06/12/19 21:32 IMPRESSION: Small umbilical hernia containing only fat. Laboratory 06/12/19 06/12/19 06/12/19 19:22 19:22 19:22 WBC 7.2 RBC 4.55 Hgb 13.2 Hct 38.3 MCV 84 MCH 29.0 MCHC 34.4 RDW 13.0 Plt Count 251 Lymph % (Auto) 39.7 [place] % (Auto) 7.3 Eos % (Auto) 3.2 Baso % (Auto) 1.2 Absolute Neuts (auto) 3.5 Absolute Lymphs (auto) 2.9 Absolute Monos (auto) 0.5 Absolute Eos (auto) 0.2 Absolute Basos (auto) 0.1 Seg Neutrophils % 48.6 Sodium 139.9 Potassium 3.6 Chloride 104 Carbon Dioxide 27 Anion Gap 9 BUN 13 Creatinine 0.76 Est GFR ( Amer) > 60 Est GFR (MDRD) Non-Af > 60 Glucose 84 Lactic Acid 0.7 Calcium 9.8 Total Bilirubin 0.5 Direct Bilirubin 0.1 Neonat Total Bilirubin Not Reportable Neonat Direct Bilirubin Not Reportable Neonat Indirect Bili Not Reportable AST 18 ALT 14 Alkaline Phosphatase 47 Total Protein 7.2 Albumin 4.7 Lipase 45.7 Urine Color Urine Appearance Urine pH Ur Specific [place] Urine Protein Urine Glucose (UA) Urine Ketones Urine Blood Urine Nitrite Urine Bilirubin Urine Urobilinogen Ur Leukocyte Esterase Urine WBC (Auto) Urine RBC (Auto) U Hyaline Cast (Auto) Squamous Epi Cells Auto Urine Mucus (Auto) Urine Ascorbic Acid Urine HCG, Qual 06/12/19 20:02 WBC RBC Hgb Hct MCV MCH MCHC RDW Plt Count Lymph % (Auto) [place] % (Auto) Eos % (Auto) Baso % (Auto) Absolute Neuts (auto) Absolute Lymphs (auto) Absolute Monos (auto) Absolute Eos (auto) Absolute Basos (auto) Seg Neutrophils % Sodium Potassium Chloride Carbon Dioxide Anion Gap BUN Creatinine Est GFR ( Amer) Est GFR (MDRD) Non-Af Glucose Lactic Acid Calcium Total Bilirubin Direct Bilirubin Neonat Total Bilirubin Neonat Direct Bilirubin Neonat Indirect Bili AST ALT Alkaline Phosphatase Total Protein Albumin Lipase Urine Color YELLOW Urine Appearance SLIGHTLY-CLOUDY Urine pH 5.0 Ur Specific [place] 1.026 Urine Protein 30 H Urine Glucose (UA) NEGATIVE Urine Ketones TRACE H Urine Blood NEGATIVE Urine Nitrite NEGATIVE Urine Bilirubin NEGATIVE Urine Urobilinogen 2.0 H Ur Leukocyte Esterase NEGATIVE Urine WBC (Auto) 1 Urine RBC (Auto) 2 U Hyaline Cast (Auto) 2 Squamous Epi Cells Auto 14 Urine Mucus (Auto) MANY Urine Ascorbic Acid 40 H Urine HCG, Qual NEGATIVE Patient's initial ultrasound shows no signs of cholecystitis. It shows an umbilical hernia recommending a CT. CT image shows umbilical hernia containing fat only. Upon reassessment of the patient she is now pain-free. States she has already eaten the rest of her [employer]aco [employer] despite me asking her to wait until labs are back. Patient voices she would like to be discharged. At this time will discharge with return precautions and follow-up recommendation s. Verbal discharge instructions given a the bedside and opportunity for questions given. Medication warnings reviewed. Patient is in agreement with this plan and has verbalized understanding of return precautions and the need for primary care follow-up in the next 24-72 hours. This medical record was dictated with voice recognizing software. There may be grammatical, syntax errors that are unintended. - Vital Signs Vital signs: Temp Pulse Resp BP Pulse Ox 98.1 F 89 20 105/62 100 06/12/19 22:24 06/12/19 22:24 06/12/19 22:24 06/12/19 22:24 06/12/19 22:24 - Laboratory Result Diagrams: 06/12/19 19:22 06/12/19 19:22 Laboratory results interpreted by me: 06/12/19 20:02 Urine Protein 30 H Urine Ketones TRACE H Urine Urobilinogen 2.0 H Urine Ascorbic Acid 40 H Discharge - Discharge Clinical Impression: Umbilical hernia Qualifiers: Obstruction and gangrene presence: without obstruction or gangrene Qualified Code(s): K42.9 - Umbilical hernia without obstruction or gangrene Condition: Stable Disposition: HOME, SELF-CARE Instructions: Abdominal Pain ([facility]) Additional Instructions: As we discussed you have been seen and treated in the emergency department for your generalized abdominal pain. It shows that you do have a hernia although it is not causing any issues. My suggestion is to follow-up with primary care provider or surgery for continued care. Please return to the emergency room for any concerns. Forms: Return to Work Referrals: RENÉE AYOUB MD [[facility]] - Follow up as needed
[2019-06-12 20:33] LABS: APPEARANCE,URINE SLIGHTLY-CLOUDY; BILIRUBIN,URINE NEGATIVE (NEGATIVE); COLOR,URINE YELLOW; GLUCOSE, URINE NEGATIVE (NEGATIVE); KETONES,URINE TRACE mg/dL (NEGATIVE); LEUKOCYTE ESTERASE,URINE NEGATIVE (NEGATIVE); NITRITE,URINE NEGATIVE (NEGATIVE); PROTEIN,URINE 30 mg/dL (NEGATIVE); URINE SPECIFIC GRAVITY 1.026
[2019-06-12] MEDS ORDERED: NORMAL SALINE 1000 ML 1,000 ML IV ONE (20:34)
--- NOTE | 2019-06-12 21:25 | RADIOLOGY REPORT (SQ) ---
EXAM DESCRIPTION: US ABDOMEN LIMITED COMPLETED DATE/TME: 06/12/2019 19:08 CLINICAL HISTORY: 23 years, Female, pain COMPARISON: None. TECHNIQUE: Axial 2-D grayscale images of the abdomen were acquired. Doppler was utilized. LIMITATIONS: None. FINDINGS: Visualized portions of the pancreas appear normal in echogenicity. Abdominal aorta appears normal with measurements as follows: Proximal: 1.8 cm Mid: 1.5 cm Distal: 1.3 cm The liver is normal in echogenicity, measuring 18.0 cm in length. Antegrade flow is documented within the main portal vein, albeit pulsatile. Gallbladder wall thickness measures 2 mm. Sonographic Em sign was negative. No gallstones. Common bile duct diameter measures 4 mm. Right kidney measures 10.0 x 3.8 x 5.5 cm in length. No hydronephrosis. Additional focused sonographic assessment of the patient's area of pain about the mid abdomen just above the umbilicus was performed. There is an area of hypoechogenicity at this location measuring 3.0 x 0.8 x 2.6 cm in size located near the skin surface. A similar appearing area is also noted at this location. Both appear contiguous with the peritoneal fat, best visualized on cine clips. IMPRESSION: No acute sonographic abnormality within the abdomen. Hypoechoic masslike area is located about the superficial soft tissues of the anterior abdominal wall just above the umbilicus, most likely corresponding to fat-containing ventral hernias. This could be confirmed with CT. copyright 2010 [employer]- All Rights Reserved
[2019-06-12 22:25] VITALS: BP 105/62
--- NOTE | 2019-06-12 22:34 | RADIOLOGY REPORT (SQ) ---
EXAM DESCRIPTION: CT abdomen and pelvis with contrast CLINICAL HISTORY: 23 years Female, general umbilical pain COMPARISON: None. TECHNIQUE: Axial images of the abdomen and pelvis were performed utilizing intravenous contrast, with sagittal and coronal reformatted images. This exam was performed according to our departmental dose-optimization program which includes use of Automated Exposure Control, adjustment of the mA and/or kV according to patient size and/or use of iterative reconstruction technique. FINDINGS: There is a small umbilical hernia containing only fat. No evidence of bowel obstruction. The appendix appears normal. There is no significant radiographic abnormality of the liver, spleen, pancreas, adrenal glands or kidneys. No mass or adenopathy. No free air or free fluid. IMPRESSION: Small umbilical hernia containing only fat.
== END 2019-06-12 23:25 | disposition home or self-care (01) ==
LOC: ER 17:53
DX: K42.9 Umbilical hernia without obstruction or gangrene (principal); R10.10 Upper abdominal pain, unspecified
CPT/HCPCS: 99284; 96361; 96374; 96375; 36415; 83605; 83690; 85025; 81025; 80053; 81001; 76705; 74177; J1885; J7030; S0028

== ENCOUNTER 2019-07-17 17:55 | Emergency (ER) | payer BC, MEDICAID ==
--- NOTE | 2019-07-17 19:05 | ER Document Report ---
ED Medical Screen (RME) - General Chief Complaint: Wrist Injury Stated Complaint: LEFT WRIST INJURY/ARM PAIN Time Seen by Provider: 07/17/19 19:02 Mode of Arrival: Ambulatory Information source: Patient Notes: 23-year-old female presents to ED for complaint of left wrist pain. She states she did not fall or injury she just knows that it hurts. She states it is been hurting since Saturday. She states she has taken one ibuprofen since Saturday. She went to urgent care on Saturday and they did a x-ray and told her to her bones were . She states she was not able to move her wrist and all the directions they wanted her to move it. She states they did not refer to orthopedics or place her in a splint. She is alert oriented respirations regular nonlabored speaking in full sentences. She states her last menstrual period was June 30, 2019. I have greeted and performed a rapid initial assessment of this patient. A comprehensive ED assessment and evaluation of the patient, analysis of test results and completion of medical decision making process will be conducted by an additional ED providers. TRAVEL OUTSIDE OF THE [place] IN LAST 30 DAYS: No - Related Data Allergies/Adverse Reactions: No Known Allergies Allergy (Verified 04/30/19 08:07) Past Medical History Renal/ Medical History: Denies: Hx Peritoneal Dialysis Psychiatric Medical History: Reports: Hx Anxiety, Hx Attention Deficit Hyperactivity Disorder, Hx Bipolar Disorder, Hx Depression Past Surgical History: Reports: Hx Herniorrhaphy - Umbilical as an infant - Immunizations Hx Diphtheria, Pertussis, Tetanus Vaccination: Yes Physical Exam - Vital signs Vitals: Temp Pulse Resp BP Pulse Ox 98.2 F 88 12 112/59 L 100 07/17/19 18:14 07/17/19 18:14 07/17/19 18:14 07/17/19 18:14 07/17/19 18:14 Course - Vital Signs Vital signs: Temp Pulse Resp BP Pulse Ox 98.2 F 88 12 112/59 L 100 07/17/19 18:14 07/17/19 18:14 07/17/19 18:14 07/17/19 18:14 07/17/19 18:14
--- NOTE | 2019-07-17 20:00 | RADIOLOGY REPORT (SQ) ---
EXAM DESCRIPTION: HAND LEFT 3 VIEWS COMPLETED DATE/TIME: 07/17/2019 7:26 pm REASON FOR STUDY: Pain left hand and wrist COMPARISON: None. EXAM PARAMETERS: NUMBER OF VIEWS: Three views. TECHNIQUE: AP, lateral and oblique radiographic images acquired of the left hand. LIMITATIONS: None. FINDINGS: MINERALIZATION: Normal. BONES: No acute fracture or dislocation. No worrisome bone lesions. JOINTS: No effusion. SOFT TISSUES: No significant soft tissue swelling. No radiopaque foreign body. OTHER: No other significant finding. IMPRESSION: NO FRACTURE. TECHNICAL DOCUMENTATION: JOB ID: [id number] [place]-72 2010 [employer]- All Rights Reserved Reading location - IP/workstation name: [email or web address]
--- NOTE | 2019-07-17 20:04 | RADIOLOGY REPORT (SQ) ---
EXAM DESCRIPTION: WRIST LEFT 3 VIEWS COMPLETED DATE/TIME: 07/17/2019 7:26 pm REASON FOR STUDY: Pain left hand and wrist COMPARISON: None. EXAM PARAMETERS: NUMBER OF VIEWS: Three views. TECHNIQUE: AP, lateral and oblique radiographic images acquired of the left wrist. LIMITATIONS: None. FINDINGS: MINERALIZATION: Normal. BONES: No acute fracture or dislocation. No worrisome bone lesions. JOINTS: No effusion. SOFT TISSUES: No significant soft tissue swelling. No radiopaque foreign body. OTHER: No other significant finding. IMPRESSION: NO FRACTURE. TECHNICAL DOCUMENTATION: JOB ID: [id number] [place]-72 2010 [employer]- All Rights Reserved Reading location - IP/workstation name: [email or web address]
--- NOTE | 2019-07-17 20:05 | ER Document Report ---
HPI - HPI Time Seen by Provider: 07/17/19 19:02 Pain Level: 4 Context: Patient is a 23-year-old female who presents to the emergency department with a chief complaint of left wrist pain. Patient reports she developed left wrist pain on Saturday. Patient denies a fall or injury. 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 Patient reports at times the pain feels like a ananth p, shooting and aching pain. Patient reports Saturday she does attempt to move the wrist the pain shoots up her arm. Patient reports she did see the urgent care on Saturday and had an x-ray performed. She was told that the bones are . She was told to go by a splint was given 800 mg ibuprofen. Patient reports she took 1 dose of ibuprofen but not take anymore because it upsets her stomach. Patient reports she cannot tolerate other anti-inflammatories. Patient reports she has not taken anything else for her discomfort. Patient reports she did not buy a splint. - REPRODUCTIVE LMP: 06/30/19 Reproductive: DENIES: : Past Medical History - General Information source: Patient - Social History Smoking Status: Unknown if Ever Smoked Frequency of alcohol use: None Drug Abuse: None Lives with: Family Family History: Reviewed & Not Pertinent, Malignancy Patient has suicidal ideation: No Patient has homicidal ideation: No - Past Medical History Cardiac Medical History: Reports: None Pulmonary Medical History: Reports: None EENT Medical History: Reports: None Neurological Medical History: Reports: None Endocrine Medical History: Reports: None Renal/ Medical History: Reports: None. Denies: Hx Peritoneal Dialysis Malignancy Medical History: Reports: None GI Medical History: Reports: None Musculoskeletal Medical History: Reports None Skin Medical History: Reports None Psychiatric Medical History: Reports: Hx Anxiety, Hx Attention Deficit Hyperactivity Disorder, Hx Bipolar Disorder, Hx Depression Traumatic Medical History: Reports: None Infectious Medical History: Reports: None Past Surgical History: Reports: Hx Herniorrhaphy - Umbilical as an - Immunizations Hx Diphtheria, Pertussis, Tetanus Vaccination: Yes Vertical Provider Document - CONSTITUTIONAL Agree With Documented VS: Yes Exam Limitations: No Limitations General Appearance: No Apparent Distress - INFECTION CONTROL TRAVEL OUTSIDE OF THE [place] IN LAST 30 DAYS: No - HEENT HEENT: Atraumatic, Normocephalic, PERRLA - NECK Neck: Normal Inspection - CARDIOVASCULAR Cardiovascular: Regular Rate, Regular Rhythm - GI/ABDOMEN Gastrointestinal: Abdomen Soft, Abdomen Non-Tender - MUSCULOSKELETAL/EXTREMETIES Musculoskeletal/Extremeties: Tender Notes: Patient has diffuse tenderness noted to the dorsal aspect of left wrist. Patient does have mild tenderness to the ventral aspect of the wrist. Patient is able to move the last wrist to perform flexion extension although as this does cause significant pain is reported. Patient has a strong left radial pulse. Patient able to move all of her digits on the left hand. No snuff box tenderness. - NEURO Level of Consciousness: Awake, Alert, Appropriate - DERM Integumentary: Warm, Dry, No Rash Course - Re-evaluation Re-evalutation: 07/17/19 20:16 Patient's x-ray was negative. Patient does have significant tenderness to the volar and dorsal aspect of the left wrist. We will place the patient in a volar dorsal splint and have her follow-up with orthopedics. Patient given strict return precautions as well as splinting precautions. Patient to use anti- inflammatories, ice and elevate. - Vital Signs Vital signs: Temp Pulse Resp BP Pulse Ox 98.2 F 88 12 112/59 L 100 07/17/19 18:14 07/17/19 18:14 07/17/19 18:14 07/17/19 18:14 07/17/19 18:14 - Diagnostic Test Radiology reviewed: Reports reviewed Radiology results interpreted by me: 07/17/19 20:16 Hand X-Ray 07/17/19 19:07 IMPRESSION: NO FRACTURE. Wrist X-Ray 07/17/19 19:07 IMPRESSION: NO FRACTURE. Discharge - Discharge Clinical Impression: Left wrist pain Condition: Stable Disposition: HOME, SELF-CARE Additional Instructions: Today you are seen in the emergency department for left wrist pain. There is no acute bony abnormality such as a fracture dislocation. You do have significant pain over the dorsal and ventral aspect of the left wrist. We have placed you in a splint. You need to keep this clean dry and intact. I have referred you to orthopedics. Please call them on Saturday to make a follow-up appointment. Please keep the arm elevated, use ice, and naproxen as prescribed. Naproxen is an anti-inflammatory. Splint Pending Casting Your injury can't be casted until the swelling has subsided. Therefore, a temporary splint has been placed to protect the injury. Full use of an injured area is not possible in a splint. You should follow the doctor's instructions concerning rest, ice, and elevation of the injury. Never do anything which causes pain under the splint. Keep the splint on ALL THE TIME until you return for casting. If there is unexpected severe pain, or numbness, discoloration, or swelling beyond the splint, you should return at once. Splint Precautions A splint has been placed. This will protect the area while healing begins. Your problem does NOT normally require a cast. It MUST, however, be held still! Keep the splint on ALL THE TIME until instructed to remove it by the d octor. As you begin to use the area, be careful. You shouldn't do anything which causes discomfort -- you may disturb the injury even with the splint in place. After the initial period of rest and elevation, if splint does not prevent pain when you move, come back. You may require placement of a different splint, or a cast. If there is unexpected severe pain, or numbness, discoloration, or swelling beyond the splint, you should return at once. If you feel that the splint has broken or become loose, come back. Prescriptions: Naproxen 500 mg PO BID PRN #14 tablet PRN Reason: Forms: Return to Work Referrals: ZO NICHOLE DO [ACTIVE STAFF] - Follow up as needed
[2019-07-17] MEDS ORDERED: NAPROXEN 250 MG TABLET PO ONE (20:07)
[2019-07-17 20:42] VITALS: BP 107/62
== END 2019-07-17 20:42 | disposition home or self-care (01) ==
LOC: ER 17:55
DX: M25.532 Pain in left wrist (principal)
CPT/HCPCS: 99283

== ENCOUNTER 2019-07-26 12:38 | Emergency (ER) | payer BC, MEDICAID ==
--- NOTE | 2019-07-26 13:36 | ER Document Report ---
HPI - HPI Patient complains to provider of: left arm pain Time Seen by Provider: 07/26/19 13:18 Onset: Other - over two weeks Onset/Duration: Persistent, Worse Quality of pain: Achy, Throbbing Pain Level: 1 Context: 23-year-old female presents emergency department with complaints of left arm pain. Reports she was evaluated here on July 17 with the same symptoms. No fracture was noted she was placed in splint instructed to follow-up with orthopedics. She did follow-up with her primary care provider is waiting for a referral to orthopedics. In the meantime she reports the pain is getting worse. She denies injury. She reports she is unemployed at this time. She is right- handed. Denies past medical history of injury to the arm or hand. Associated Symptoms: None Exacerbated by: Movement Relieved by: Denies Similar symptoms previously: Yes Recently seen / treated by doctor: Yes - REPRODUCTIVE Reproductive: DENIES: : - MUSCULOSKELETAL Musculoskeletal: REPORTS: Extremity pain Past Medical History - General Information source: Patient Last Menstrual Period: yesterday - Social History Smoking Status: Former Smoker Frequency of alcohol use: None Drug Abuse: None Occupation: none Lives with: Family Family History: Reviewed & Not Pertinent, Malignancy Patient has suicidal ideation: No Patient has homicidal ideation: No Renal/ Medical History: Denies: Hx Peritoneal Dialysis Psychiatric Medical History: Reports: Hx Anxiety, Hx Attention Deficit Hyperactivity Disorder, Hx Bipolar Disorder, Hx Depression Past Surgical History: Reports: Hx Herniorrhaphy - Umbilical as an - Immunizations Hx Diphtheria, Pertussis, Tetanus Vaccination: Yes Vertical Provider Document - CONSTITUTIONAL Agree With Documented VS: Yes Exam Limitations: No Limitations General Appearance: WD/WN, No Apparent Distress - INFECTION CONTROL TRAVEL OUTSIDE OF THE [place] IN LAST 30 DAYS: No - HEENT HEENT: Atraumatic, Normocephalic - NECK Neck: Supple - RESPIRATORY Respiratory: No Respiratory Distress - CARDIOVASCULAR Cardiovascular: Regular Rate - MUSCULOSKELETAL/EXTREMETIES Musculoskeletal/Extremeties: Tender - She reports left arm pain from middle of her upper arm all the way down to her fingertips. no matter where the arm is touched she winces. Complains of pain when she extends or flexes her elbow. Bilateral radial pulses equal and strong cap refill less than 2 seconds. No o bvious injury no erythema no swelling no warmth - NEURO Level of Consciousness: Awake, Alert, Appropriate Motor/Sensory: No Motor Deficit - DERM Integumentary: Warm, Dry Adult Front & Back Diagram: 1 - Patient complains of pain from mid shaft down to her fingertips. Course - Re-evaluation Re-evalutation: 07/26/19 13:32 23-year-old female presents emergency department with complaints of left arm pain. She will barely let me touch the arm. She reports pain with touch and movement. No obvious deformity. No erythema, no swelling, no warmth. Bilateral radial pulses equal and strong. Cap refill less than 3 seconds. Patient requesting an MRI. Discussed CT with patient. She declined reported believes it may be a nerve problem. She was again instructed on the importance of follow-up with her primary care provider tomorrow to check where the Ortho referral is. The black Velcro cock-up splint was applied. Patient did not seem very happy with the cock-up splint so a sling was offered. She declined a sling. Patient did not seem very happy when she was discharged. Dictation of this chart was performed using voice recognition software; therefore, there may be some unintended grammatical errors. - Vital Signs Vital signs: Temp Pulse Resp BP Pulse Ox 98.9 F 97 14 119/69 98 07/26/19 12:43 07/26/19 12:43 07/26/19 12:43 07/26/19 12:43 07/26/19 12:43 Procedures - Immobilization Left Wrist Pre-Proc Neuro Vasc Exam: Normal Immobilizer type: Cock-up Performed by: PCT Post-Proc Neuro Vasc Exam: Unchanged from pre-exam Alignment checked and good: Yes Discharge - Discharge Clinical Impression: Left arm pain Condition: Stable Disposition: HOME, SELF-CARE Instructions: Use of Qhfg-Dod-Mdmhtai Ibuprofen ([facility]) Additional Instructions: *You have been evaluated for left arm pain *Maintain the splint for comfort *Rest/Ice/Elevate your arm *Follow up with orthopedics-call your primary care provider tomorrow for an update on your referral *Take ibuprofen as indicated for pain *Return to ED for worsening condition, changes, needs Referrals: MODESTO AGUSTIN PA-C [Primary Care Provider] - Follow up tomorrow
[2019-07-26 13:50] VITALS: BP 115/67
== END 2019-07-26 13:49 | disposition home or self-care (01) ==
LOC: ER 12:38
DX: M79.622 Pain in left upper arm (principal); M79.632 Pain in left forearm; M79.645 Pain in left finger(s); Z87.891 Personal history of nicotine dependence
CPT/HCPCS: 99283; L3908

== ENCOUNTER 2019-09-01 13:17 | Day surgery (SDC) | payer BC, MEDICAID ==
[2019-08-26 10:45] LABS: ABSOLUTE BASOPHILS # (AUTO) 0.1 10^3/uL (0.0-0.2); ABSOLUTE EOSINOPHILS # (AUTO) 0.2 10^3/uL (0.0-0.6); ABSOLUTE MONOCYTES (AUTO) 0.6 10^3/uL (0.1-1.4); ABSOLUTE NEUT (AUTO) 4.3 10^3/uL (1.7-8.2); BASOPHILS % (AUTO) 1.3 % (0-2); EOSINOPHILS % (AUTO) 2.6 % (0-6); HEMATOCRIT 39.4 % (36.0-47.0); HEMOGLOBIN 13.2 g/dL (12.0-15.5); LYMPHOCYTES % (AUTO) 27.8 % (13-45); MEAN CORPUSCULAR HGB CONC 33.5 g/dL (32.0-36.0); MEAN CORPUSCULAR VOLUME 87 fl (80-97); MONOCYTES % (AUTO) 8.5 % (3-13); PLATELET COUNT 271 10^3/uL (150-450); RED BLOOD COUNT 4.56 10^6/uL (3.72-5.28); RED CELL DISTRIBUTION WIDTH 12.4 % (11.5-14.0); SEGMENTED NEUTROPHILS % (AUTO) 59.8 % (42-78); TOTAL CELLS COUNTED % (AUTO) 100 %; WHITE BLOOD COUNT 7.2 10^3/uL (4.0-10.5)
[~2019-09-01 13:17] MED LIST: CEFAZOLIN SODIUM 1 GM in DEXTROSE 5%-WATER 50 ML IV PRN; CEFAZOLIN SODIUM 2 GM in DEXTROSE 5%-WATER 100 ML IV PRN; DEXAMETHASONE SOD PHOSPHATE INJ 4 MG/1 ML VIAL ONE; FENTANYL CITRATE INJ/PF 100 MCG/2 ML AMPUL ONE; LACTATED RINGERS 1000 ML IV PRN; LIDOCAINE 0.5% INJ-PF (5 MG/ML) 50 ML SDV SUBCUT PRN; MIDAZOLAM 2 MG/2 ML INJ ONE; ONDANSETRON HCL INJ/PF 4 MG/2 ML SDV ONE; PROPOFOL INJ 200 MG/20 ML VIAL IV ONE; SUGAMMADEX SODIUM 200 MG/2 ML SDV IV ONE
[2019-09-01] MEDS ORDERED: BUPIVACAINE INJ/PF LIPOSOME/PF 266 MG/20 ML SDV ONE (14:17)
[2019-09-01] MEDS ORDERED: ONDANSETRON HCL INJ/PF 4 MG/2 ML SDV IV PRN (14:58)
[2019-09-01] MEDS ORDERED: PROMETHAZINE HCL INJ 25 MG/1 ML VIAL IV PRN ×2 (14:58)
[2019-09-01] MEDS ORDERED: DIPHENHYDRAMINE HCL 50 MG/ML VIAL IV PRN (14:58)
[2019-09-01] MEDS ORDERED: FENTANYL CITRATE INJ/PF 100 MCG/2 ML AMPUL IV PRN ×3 (14:58)
[2019-09-01] MEDS ORDERED: MORPHINE SULFATE 10 MG/ML INJ IV PRN (14:58)
[2019-09-01] MEDS ORDERED: MEPERIDINE HCL/PF INJ 25 MG/1 ML DISP.SYRIN IV PRN (14:58)
--- NOTE | 2019-09-01 15:16 | Operative Report ---
Nonrecallable Operative Report DATE OF SURGERY: 09/01/19 PREOPERATIVE DIAGNOSIS: ventral hernia POSTOPERATIVE DIAGNOSIS: ventral hernia OPERATION: ventral hernia repair SURGEON: ZO SHIELDS ANESTHESIA: GA TISSUE REMOVED OR ALTERED: none COMPLICATIONS: none ESTIMATED BLOOD LOSS: 10cc INTRAOPERATIVE FINDINGS: rectus diastais with no palp hernia other than the small .5cm hernia that was repaired. PROCEDURE: Patient was brought to the operating room awake alert stable condition placed in the upper table supine position induced under general anesthesia and intubated. After appropriate timeout site verification the abdomen was prepped and draped in usual sterile manner for the procedure. Patient was preoperatively marked in preop holding where there was a very small supraumbilical hernia about 3 cm above the umbilicus in the midline incision was made directly over that palpable hernia dissection was carried down through subcutaneous tissue with Bovie cautery. The hernia quickly came into view and was preperitoneal fat. Was dissected away from the surrounding underlying fascia and the neck of it was incised with Bovie cautery and remove the preperitoneal fat. Small defect was then identified it was enlarged to allow the surgeon's fingers to palpate underneath the fascia. I palpated cephalad and inferiorly and could not palpate any further ventral defect. I therefore closed the supraumbilical fascial defect in 2 layers transversely with interrupted place 0 Vicryl sutures placed in a Smead Perera fashion. That suture was then imbricated further with 0 Vicryl sutures. The subcutaneous tissue was then reapproximated with interrupted 3-0 Vicryl and skin was reapproximated intracuticular 4-0 Biosyn Steri-Strips completed the procedure. Estimated blood loss was less than 10 cc sponge needle counts correct x2 the patient was awakened in the operative extubated transferred recovery in stable condition no complications
--- NOTE | 2019-09-01 15:17 | Discharge Summary ---
Discharge Summary (SDC) - Discharge Final Diagnosis: Ventral hernia Date of Surgery: 09/01/19 Discharge Date: 09/01/19 Condition: Good Referrals: MODESTO AGUSTIN PA-C [Primary Care Provider] - Discharge Diet: As Tolerated Discharge Activity: Activity As Tolerated, No Lifting Over 10 Pounds Report the Following to Your Physician Immediately: Shortness of Breath, Nausea, Vomiting, Increase in Pain, Fever over 101 Degrees, Unusual Bleeding - Patient is a follow-up appointment with me in 10 to 14 days
[2019-09-01] MEDS ORDERED: OXYCODONE-ACETAMINOPHEN 5-325 MG TABLET PO PRN (15:18)
[2019-09-01] MEDS ORDERED: MIDAZOLAM 2 MG/2 ML INJ ONE (15:42)
[2019-09-01] MEDS ORDERED: ACETAMINOPHEN 1,000 MG/100 ML RTUPB IV ONE (15:59)
[2019-09-01] MEDS ORDERED: KETOROLAC TROMETHAMINE INJ/PF 30 MG/1 ML SDV ONE (15:59)
[2019-09-01] MEDS ORDERED: OXYCODONE-ACETAMINOPHEN 5-325 MG TABLET ONE (16:39)
[2019-09-01 18:33] VITALS: BP 108/72
== END 2019-09-01 18:30 | disposition home or self-care (01) ==
LOC: OROUT 13:17
PROVIDERS: ATTEND Surgery
DX: K43.9 Ventral hernia without obstruction or gangrene (principal); Z79.899 Other long term (current) drug therapy; Z01.818 Encounter for other preprocedural examination; F90.9 Attention-deficit hyperactivity disorder, unspecified type; G47.00 Insomnia, unspecified; F43.29 Adjustment disorder with other symptoms
CPT/HCPCS: 36415; 85025; 81025; 49560; J2250; J0690; J1100; J3010; J1885; J2405; J7060; J2704; J0131; C9290; J3490; 752

== ENCOUNTER 2019-11-08 11:09 | Emergency (ER) | payer OTHER, MEDICAID ==
[2019-11-08] MEDS ORDERED: ACETAMINOPHEN 325 MG TABLET PO ONE (11:36)
[2019-11-08] MEDS ORDERED: PSEUDOEPHEDRINE HCL 30 MG TABLET PO ONE (11:37)
[2019-11-08] MEDS ORDERED: ONDANSETRON 4 MG TAB.RAPDIS PO ONE (11:38)
--- NOTE | 2019-11-08 11:40 | ER Document Report ---
HPI - HPI Patient complains to provider of: Flu symptoms Time Seen by Provider: 11/08/19 11:30 Onset: Other - 3 days Onset/Duration: Persistent Quality of pain: Achy Pain Level: 2 Context: Patient presents with fever, cough congestion and sore throat for the past 3 days. Patient states fevers as high as 99.8. Patient reports nausea. Patient denies any vomiting or diarrhea. Patient reports recent exposure to influenza type B and saw her primary doctor yesterday was placed on Tamiflu. Patient feels like her throat pain and cough have worsened today prompting her visit. Associated Symptoms: Nonproductive cough, Fever, Nausea, Rhinnorhea, Sore throat. denies: Earache, Vomiting Exacerbated by: Denies Relieved by: Denies Similar symptoms previously: Yes Recently seen / treated by doctor: Yes - ROS ROS below otherwise negative: Yes Systems Reviewed and Negative: Yes All other systems reviewed and negative - CONSTITUTIONAL Constitutional: REPORTS: Fever, Chills - EENT EENT: REPORTS: Sore Throat, Nasal Drainage-Clear, Congestion - RESPIRATORY Respiratory: REPORTS: Coughing. DENIES: Trouble Breathing - GASTROINTESTINAL Gastrointestinal: REPORTS: Nausea. 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 Lives with: Family Family History: Reviewed & Not Pertinent, Malignancy Patient has suicidal ideation: No Patient has homicidal ideation: No Renal/ Medical History: Denies: Hx Peritoneal Dialysis Musculoskeletal Medical History: Denies Hx Arthritis Psychiatric Medical History: Reports: Hx Anxiety, Hx Attention Deficit Hyperactivity Disorder, Hx Bipolar Disorder - bipolar 1, ADHD, PTSD, Anxiety, Depression, Hx Depression Past Surgical History: Reports: Hx Herniorrhaphy - Umbilical as an infant - Immunizations Hx Diphtheria, Pertussis, Tetanus Vaccination: Yes Vertical Provider Document - CONSTITUTIONAL Agree With Documented VS: Yes Exam Limitations: No Limitations General Appearance: WD/WN, No Apparent Distress - INFECTION CONTROL TRAVEL OUTSIDE OF THE [place] IN LAST 30 DAYS: No - HEENT HEENT: Atraumatic, Normocephalic, Pharyngeal Tenderness, Pharyngeal Erythema. negative: Pharyngeal Exudate, Tympanic Membrane Red, Tympanic Membrane Bulging Notes: Clear rhinorrhea - NECK Neck: Normal Inspection, Supple. negative: Lymphadenopathy-Left, Lymphadenopathy-Right - RESPIRATORY Respiratory: Breath Sounds Normal, No Respiratory Distress, Chest Non-Tender - CARDIOVASCULAR Cardiovascular: Regular Rhythm, No Murmur, Tachycardia - GI/ABDOMEN Gastrointestinal: Abdomen Soft, Abdomen Non-Tender - BACK Back: Normal Inspection - MUSCULOSKELETAL/EXTREMETIES Musculoskeletal/Extremeties: MAEW - NEURO Level of Consciousness: Awake, Alert, Appropriate Motor/Sensory: No Motor Deficit - DERM Integumentary: Warm, Dry, No Rash Course - Re-evaluation Re-evalutation: 11/08/19 12:47 Patient nontoxic in appearance. Rapid strep test negative, chest x-ray negative without any acute findings. Patient is already being treated for influenza with Tamiflu. Patient otherwise stable for discharge. Will provide patient with nausea medication. Patient encouraged to follow-up with her primary doctor for recheck. - Vital Signs Vital signs: Temp Pulse Resp BP Pulse Ox 99.7 F 112 H 16 113/64 99 11/08/19 11:14 11/08/19 11:14 11/08/19 11:14 11/08/19 11:14 11/08/19 11:14 Discharge - Discharge Clinical Impression: Flu-like symptoms, Nausea, Sore throat Condition: Stable Disposition: HOME, SELF-CARE Instructions: Acetaminophen, Influenza ([facility]), Nausea or Vomiting, Nonspecific ([facility]), Sore Throat ([facility]) Additional Instructions: Return immediately for any new or worsening symptoms Followup with your primary care provider, call tomorrow to make a followup appointment Continue to take your Tamiflu as previously prescribed Prescriptions: Ondansetron [Zofran Odt 4 mg Tablet] 1 tab PO Q6H #15 tab.rapdis Forms: Return to Work Referrals: MODESTO AGUSTIN PA-C [Primary Care Provider] - Follow up tomorrow
--- NOTE | 2019-11-08 12:46 | RADIOLOGY REPORT (SQ) ---
EXAM DESCRIPTION: CHEST 2 VIEWS COMPLETED DATE/TIME: 11/08/2019 12:29 pm REASON FOR STUDY: cough COMPARISON: None. EXAM PARAMETERS: NUMBER OF VIEWS: two views TECHNIQUE: Digital Frontal and Lateral radiographic views of the chest acquired. RADIATION DOSE: NA LIMITATIONS: none FINDINGS: LUNGS AND PLEURA: No opacities, masses or pneumothorax. No pleural effusion. MEDIASTINUM AND HILAR STRUCTURES: No masses or contour abnormalities. HEART AND VASCULAR STRUCTURES: Heart normal size. No evidence for failure. BONES: No acute findings. HARDWARE: None in the chest. OTHER: No other significant finding. IMPRESSION: NO ACUTE RADIOGRAPHIC FINDING IN THE CHEST. TECHNICAL DOCUMENTATION: JOB ID: [id number] [employer]- All Rights Reserved Reading location - IP/workstation name: [email or web address]
[2019-11-08 13:29] VITALS: BP 96/58
== END 2019-11-08 13:29 | disposition home or self-care (01) ==
LOC: ER 11:09
DX: J11.1 Influenza due to unidentified influenza virus with other respiratory manifestations (principal); R11.0 Nausea; R50.9 Fever, unspecified; R05 Cough; R07.0 Pain in throat; J34.89 Other specified disorders of nose and nasal sinuses
CPT/HCPCS: 99283; 87070; 87880; 71046; S0119

== ENCOUNTER 2020-04-10 14:11 | Emergency (ER) | payer MEDICAID ==
[2020-04-10 14:19] VITALS: BP 106/63
[2020-04-10] MEDS ORDERED: HYDROCODONE/ACETAMINOPHEN 5-325 MG (6 TAB/ER DISP) PO PRN (16:00)
[2020-04-10] MEDS ORDERED: AMOXICILLIN TR/POT CLAVULANATE 875-125 MG TAB PO ONE (16:00)
--- NOTE | 2020-04-10 16:07 | ER Document Report ---
ED Animal Bite - General Chief Complaint: Dog Bite Stated Complaint: DOG BITE/BUTTOCK Time Seen by Provider: 04/10/20 15:59 Primary Care Provider: MODESTO AGUSTIN PA-C [Primary Care Provider] - Follow up as needed Mode of Arrival: Ambulatory Information source: Patient Notes: 24-year-old female presented to ED for a dog bite to her right buttocks 3 puncture wounds. They were open. She states that is her dog he is up-to-date on his shots she is up-to-date on her shots. She states she hit her significant other and the dog attacked her for that. She states she did not hit the dog were but the dog got mad because she hit her significant other. She is alert oriented respirations regular nonlabored speaking in full sentences. She is having a lot of pain in the right butt cheek. Area was rinsed cleaned after was examined. She was started on Augmentin and a [place] dispense pack. Her tetanus is up-to-date. She was instructed to use the Augmentin until it is completed. She was instructed that Augmentin can reduce the effectiveness of her control that she needs to use another form of control while on the antibiotics. TRAVEL OUTSIDE OF THE [place] IN LAST 30 DAYS: No - HPI Location of injury: Other - Right buttocks Severity of injury: Bitten Onset: Just prior to arrival Quality of pain: Sharp Context of attack: Other - She hit her significant other which angered the dog Type of animal: Dog Appearance of animal: Appeared well Animal's immunizations: UTD Animal captured or known: Yes Animal control notified: Yes Animal control form completed: Yes - Related Data Allergies/Adverse Reactions: No Known Allergies Allergy (Verified 04/10/20 15:50) Past Medical History - General Information source: Patient - Social History Smoking Status: Current Every Day Smoker Lives with: Spouse/Significant other Family History: Reviewed & Not Pertinent, Malignancy Patient has suicidal ideation: No Patient has homicidal ideation: No - Past Medical History Cardiac Medical History: Reports: None Pulmonary Medical History: Reports: None EENT Medical History: Reports: None Neurological Medical History: Reports: None Endocrine Medical History: Reports: None Renal/ Medical History: Reports: None Malignancy Medical History: Reports: None GI Medical History: Reports: None Musculoskeletal Medical History: Reports None Skin Medical History: Reports None Psychiatric Medical History: Reports: Hx Anxiety, Hx Attention Deficit Hyperactivity Disorder, Hx Bipolar Disorder - bipolar 1, ADHD, PTSD, Anxiety, Depression, Hx Depression Traumatic Medical History: Reports: None Infectious Medical History: Reports: None Past Surgical History: Reports: Hx Umbilical Hernia - Immunizations Immunizations up to date: Yes Hx Diphtheria, Pertussis, Tetanus Vaccination: Yes - 2015 Review of Systems - Review of Systems Constitutional: No symptoms reported EENT: No symptoms reported Cardiovascular: No symptoms reported Respiratory: No symptoms reported Gastrointestinal: No symptoms reported Genitourinary: No symptoms reported Female Genitourinary: No symptoms reported Musculoskeletal: No symptoms reported Skin: Other - The puncture wound to the right buttocks from a dog bite Hematologic/Lymphatic: No symptoms reported Neurological/Psychological: No symptoms reported Physical Exam - Vital signs Vitals: Temp Pulse Resp BP Pulse Ox 99.0 F 77 16 106/63 100 04/10/20 14:16 04/10/20 14:16 04/10/20 14:16 04/10/20 14:16 04/10/20 14:16 Interpretation: Normal - General General appearance: Appears well, Alert - HEENT Head: Normocephalic, Atraumatic Eyes: Normal Pupils: PERRL - Respiratory Respiratory status: No respiratory distress Chest status: Nontender Breath sounds: Normal Chest palpation: Normal - Cardiovascular Rhythm: Regular Heart sounds: Normal auscultation Murmur: No - Abdominal Inspection: Normal Distension: No distension Bowel sounds: Normal Tenderness: Nontender Organomegaly: No organomegaly - Back Back: Normal, Nontender - Extremities General upper extremity: Normal inspection, Nontender, Normal color, Normal ROM, Normal temperature General lower extremity: Normal inspection, Nontender, Normal color, Normal ROM, Normal temperature, Normal weight bearing. No: Kristine's sign - Neurological Neuro grossly intact: Yes Cognition: Normal Orientation: AAOx4 [place] Coma Scale Eye Opening: Spontaneous [place] Coma Scale Verbal: Oriented [place] Coma Scale Motor: Obeys Commands [place] Star Coma Scale Total: 15 Speech: Normal Motor strength normal: LUE, RUE, LLE, RLE Sensory: Normal - Psychological Associated symptoms: Normal affect, Normal mood - Skin Skin Temperature: Warm Skin Moisture: Dry Skin Color: Normal Location of irregularity: Other - 3 puncture wounds to the right buttocks from a dog bite Irregularity with: Tenderness Course - Vital Signs Vital signs: Temp Pulse Resp BP Pulse Ox 99.0 F 77 16 106/63 100 04/10/20 14:16 04/10/20 14:16 04/10/20 14:16 04/10/20 14:16 04/10/20 14:16 Discharge - Discharge Clinical Impression: Open wound of right buttock due to dog bite Condition: Stable Disposition: HOME, SELF-CARE Additional Instructions: Animal Bites Animal bites are often heavily contaminated with bacteria. In spite of thorough cleansing and proper treatment, these wounds frequently become infected. Bite wounds of the hands are especially prone to complications. Bites are dressed, if possible. Large wounds may require suturing after internal cleansing. Because of infection risk, some large wounds must remain unstitched. Your doctor is trained to advise you on the best treatment for your bite. Call the doctor at once if the wound becomes red, swollen, warm, increasingly painful, or if it begins to drain. Danger signs also include red streaks up the involved extremity, swollen glands in the groin or under the arm, or fever and chills. The risk of rabies from domestic animals is very low. Bats, sick animals, and wild animals may expose you to rabies. The physician, or the health department, will inform you if you will need to receive the rabies vaccine. SOAP CLEANSING: Gently wash the wound daily using a mild soap (like Ivory, Phisoderm, Neutrogena). Use warm water, rubbing gently until all debris, ooze, and crusting have been washed from the wound. Allow to dry briefly (about 10 minutes) after cleaning. Repeat this cleansing at least three times a day for the first two days and then once or twice a day. ANTIBIOTIC OINTMENT PROTECTION: Your wounds are such that dressing them is not practical or optional. After cleansing, you should apply a thin coating of antibiotic ointment (Bacitracin, not Neosporin) to the wounds at least three times daily. This lessens infection risk, and may decrease the amount of scarring. Use a q-tip or dull butter knife, not your finger, to apply this ointment. Any debris or ooze which builds up in the ointment should be gently rubbed off with a sterile gauze pad. Harder crusting may need to be gently scrubbed off with a clean wash cloth with soap and warm water, perhaps applying a warm, wet wash cloth to the wound for ten minutes first. Development of redness, severe itching, or blistering may mean allergy to the ointment. See the doctor. TETANUS IMMUNIZATION GIVEN: You have been given an immunization against tetanus. Please record this in your records. In general, a booster is needed only once every 10 years. The tetanus shot protects against tetanus or "lockjaw," which is a complication of certain wound infections (the tetanus shot cannot protect against the actual infection). The immunization site may become warm and red due to local reaction. If this occurs, apply warm compresses and take aspirin or ibuprofen to reduce inflammation and discomfort. Return for evaluation if the reaction becomes severe. Augmentin Augmentin is a mixture of amoxicillin and clavulanate. Amoxicillin is a member of the penicillin family. It covers the germs likely to cause ear, bronchial, and urinary infections better than plain penicillin. The addition of clavulanate allows it to cover staph infections of the skin, as well as resistant cases of ear and sinus infections. Your physician has chosen Augmentin for you because of the special nature of your situation. Augmentin is best taken with meals. Nausea after taking the medication is rare, but can occur. Diarrhea can occur, particularly in small children. Vaginal yeast infections, and oral thrush in infants are also common. Contact your physician if these problems occur. Allergy to penicillins is common. If you have had an allergic reaction to any drug of the penicillin family, you should never take any other penicillin. Notify your doctor at once if you develop hives, shortness of breath, swelling, or faintness. ORAL NARCOTIC MEDICATION: You have been given a [employer] dispense pack for pain control. This medication is a narcotic. It's best taken with food, as nausea can result if taken on an empty stomach. Don't operate machinery or drive within six hours of taking this medication. Do not combine this medicine with alcohol, or with any medication which can cause sedation (such as cold tablets or sleeping pills) unless you get permission from the physician. Narcotics tend to cause constipation. If possible, drink plenty of fluids and eat a diet high in fiber and fruits. FOLLOW-UP CARE: Please follow-up with primary care in __3___ days for an infection check and dressing change. FOLLOW-UP CARE: If you have been referred to a physician for follow-up care, call the physicians office for an appointment as you were instructed or within the next two days. If you experience worsening or a significant change in your symptoms, notify the physician immediately or return to the Emergency Department at any time for re-evaluation. Prescriptions: Amoxicillin/Potassium Clav [Augmentin 875-125 Tablet] 1 tab PO BID #20 tab Referrals: MODESTO AGUSTIN PA-C [Primary Care Provider] - Follow up as needed
== END 2020-04-10 16:09 | disposition home or self-care (01) ==
LOC: ER 14:11
DX: S31.815A Open bite of right buttock, initial encounter (principal); W54.0XXA Bitten by dog, initial encounter; F17.200 Nicotine dependence, unspecified, uncomplicated
CPT/HCPCS: 99283; J3490

== ENCOUNTER → 2020-06-27 | Outpatient (CLI) | payer MEDICAID ==
[2020-06-27 13:30] VITALS: BP 100/59
--- NOTE | 2020-06-27 13:30 | ER RDC ASSESSMENT REPORT ---
Intake - In the Last 14 days Have you traveled outside [place]?: No Have you been in close contact with someone CONFIRMED: Yes Worked in Healthcare?: No - Symptoms Subjective Fever([place] feverish): Yes Chills: No Muscule Aches: No Runny Nose: No Sore Throat: No Cough (New or worsening chronic cough): No Shortness of breath: No Nausea or Vomiting: Yes Headache: No Abdominal Pain: No Diarrhea(3 or more loose stools in last 24 hours): No - Do you have any of the following Chronic lung disease: Asthma or emphysema or COPD: No Cystic Fibrosis: No Diabetes: No High Blood Pressure: No Cardiovascular Disease: No Chronic Kidney Disease: No Chronic Liver Disease: No Chronic blood disorder like Sickle Cell Disease: No Weak immune system due to disease or medication: No Neurologic condition that limits movement: No Developmental delay - Moderate to Severe: No Recent (within past 2 weeks) or current : No Morbid Obesity (>100 pounds over ideal weight): No Obesity Comment: Height 5 feet 2 inches weight 148 pounds Other Comment: Patient has a history of bipolar disease and ADHD - Objective Temperature: 98.7 F Pulse Rate: 89 Respiratory Rate: 18 Blood Pressure: 100/59 O2 Sat by Pulse Oximetry: 97 Objective: Given above, testing performed: If Testing Performed: Test Specimen Type Sent to General - General Information source: Patient Notes: Patient here at [facility] for cover testing patient reports started to have symptoms 2 days ago on the which included a fever 100.8 this morning and nausea. Patient states has been exposed to a client brother last Saturday. Since PCP is at [facility] and will follow up with them. - Related Data Allergies/Adverse Reactions: No Known Allergies Allergy (Verified 04/10/20 15:50) Past Medical History - General Information source: Patient - Social History Smoking Status: Former Smoker - Quit two years ago Family History: Reviewed & Not Pertinent, Malignancy - Past Medical History Cardiac Medical History: Denies: Hx Coronary Artery Disease, Hx Heart Attack, Hx Hypertension Pulmonary Medical History: Denies: Hx Asthma, Hx Bronchitis, Hx COPD, Hx Pneumonia Neurological Medical History: Denies: Hx Cerebrovascular Accident, Hx Seizures Renal/ Medical History: Denies: Hx Peritoneal Dialysis Musculoskeletal Medical History: Denies Hx Arthritis Psychiatric Medical History: Reports: Hx Anxiety, Hx Attention Deficit Hyperactivity Disorder, Hx Bipolar Disorder - bipolar 1, ADHD, PTSD, Anxiety, Depression, Hx Depression Past Surgical History: Reports: Hx Herniorrhaphy - Umbilical as an infant, Hx Umbilical Hernia Physical Exam - General General appearance: Appears well, Alert In distress: None Notes: PHYSICAL EXAMINATION: GENERAL: Well-appearing and in no acute distress. HEAD: Atraumatic, normocephalic. EYES: sclera anicteric, conjunctiva are normal. ENT: nares patent. Moist mucous membranes. NECK: Normal range of motion, supple without lymphadenopathy LUNGS: CTAB and equal. No wheezes rales or rhonchi. Respirations even and unlabored lung sounds clear HEART: Regular rate and rhythm without murmurs ABDOMEN: Soft, nontender, normal bowel sounds, no guarding. EXTREMITIES: Normal range of motion, no pitting edema. No cyanosis. NEUROLOGICAL: Cranial nerves grossly intact. Normal speech. Normal gait. PSYCH: Normal mood, normal affect. SKIN: Warm, Dry, normal turgor, no rashes or lesions noted Diagnostic Results Laboratory Results: Patient informed of negative rapid strep and negative rapid flu results. Pending strep culture pending covid testing results. Patient provided instructions regarding COVID to include: As a person under investigation for Covid 19, the [place] department of Health and Human Services, division of public health advises you to adhere to the following guidance until your test results are reported to you. If your test result is positive, you will receive additional information from your provider and your local health department at that time. Remain at home until you are cleared by the health provider or public health authorities. Keep a log of visitors to your home, notify any visitors to your home of your isolation status. If you plan to move to a new address or leave the county, notify the local health department in your County. Call your doctor or seek care if you have an urgent medical need. Before se eking medical care, call ahead to get instructions from the provider before arriving at the medical office clinic or hospital. Notify them that you are being tested for the virus that causes Covid 19 so that arrangements can be made, as necessary, to prevent transmission to others in the healthcare setting. Next, notify the local health department in your county. If a medical emergency arises and you need to call 911, inform the first responders that you are being tested for the virus that causes Covid 19. Next, notify the local health department in your county. Patient Education/Counseling Counseling/Education: Patient presents with upper respiratory symptoms worrisome for possible Covid 19. Patient does not have emergency worring symptoms such as difficulty breathing, shortness of breath, chest pain, pressure, confusion or cyanosis. Patient appears suitable for discharge. Patient instructed to follow-up with PCP at [facility] ED for persistent or worsening symptoms. Patient's vital signs are stable and patient is nontoxic in appearance. Good return precautions have been discussed with patient, patient verbalized understanding and is agreeable with discharge plan of care at this time. C Discharge - Discharge Condition: Stable Disposition: Home; Selfcare
[2020-06-27 16:27] LABS: A TYPE INFLUENZA AG NEGATIVE (NEGATIVE); B INFLUENZA AG NEGATIVE (NEGATIVE)
== END ==
LOC: RDC 12:42
PROVIDERS: ATTEND Nurse Practitioner Family
DX: Z20.828 Contact with and (suspected) exposure to other viral communicable diseases (principal)
CPT/HCPCS: 87070; 87880; 87635; 87804; C9803; 99201; 99211